=== PATIENT | male | born 1985 | race African-American/Black ===

== ENCOUNTER 2016-04-28 23:56 | Emergency (ER) | payer BC ==
[~2016-04-28] VITALS: Ht 177.8 cm; Wt 104.3 kg
[2016-04-29 00:07] VITALS: BP 117/63
[2016-04-29] MEDS ORDERED: PRED50TA PO (00:17)
[2016-04-29] MEDS ORDERED: VENTOLIN HFA18 GM INH (00:17)
--- NOTE | 2016-04-29 00:17 | PHYS DOC ---
Past Medical History Past Medical History: Asthma, GERD Past Surgical History: Other Additional Past Surgical Histo: right hand Alcohol Use: Rarely Drug Use: Marijuana Adult General Chief Complaint Chief Complaint: ASTHMA HPI HPI Patient is a 30 year old gentleman who has history significant for asthma presents here today secondary to wheezing and shortness of breath. Patient reports that his asthma has been flaring up over the last couple weeks with the change in weather. Patient reports today it started getting worse and he came to the ER. Patient reports that he has run out of his albuterol MDI. Patient reports he has no appointment for primary care physician until 2 weeks now. Patient denies any fevers shakes chills nausea vomiting or diarrhea. Patient reports that he does have a nonproductive cough. Patient has no history of hypertension diabetes liver or kidney problems. Patient reports he does smoke marijuana. Patient's physical exam was significant for some mild respiratory wheezing. No respiratory distress. Pulse ox 99% on room air. Patient be given an albuterol neb in the ED as well as prednisone. We will discharge patient home with prednisone 5 days, and an albuterol MDI. Patient is ablating the ED without any dyspnea or shortness of breath. Patient is stable for discharge home at this time. Review of Systems Review of Systems Constitutional: Denies fever or chills [] Eyes: Denies change in visual acuity, redness, or eye pain [] All other review systems are negative except as documented in the history of present illness portion. Allergies Allergies Allergies Coded Allergies Type Severity Reaction Last Updated Verified naproxen Allergy Unknown 12/21/14 Yes Physical Exam Physical Exam Constitutional: Well developed, well nourished, no acute distress, non-toxic appearance. [] HENT: Normocephalic, atraumatic, bilateral external ears normal, oropharynx moist, no oral exudates, nose normal. [] Eyes: PERRLA, EOMI, conjunctiva normal, no discharge. [] Neck: Normal range of motion, no tenderness, supple, no stridor. [] Cardiovascular:Heart rate regular rhythm, no murmur [] Lungs & Thorax: Scant end expiratory wheezing. Abdomen: Bowel sounds normal, soft, no tenderness, no masses, no pulsatile masses. [] Skin: Warm, dry, no erythema, no rash. [] Back: No tenderness, no CVA tenderness. [] Extremities: No tenderness, no cyanosis, no clubbing, ROM intact, no edema. [] Neurologic: Alert and oriented X 3, normal motor function, normal sensory function, no focal deficits noted. [] Psychologic: Affect normal, judgement normal, mood normal. [] Current Patient Data Vital Signs Vital Signs Date Time Temp Pulse Resp B/P Pulse Ox O2 Delivery O2 Flow Rate FiO2 04/29/16 00:07 97.6 88 20 100 Room Air 97.6 EKG EKG [] Radiology/Procedures Radiology/Procedures [] Course & Med Decision Making Course & Med Decision Making Pertinent Labs and Imaging studies reviewed. (See chart for details) [] Dragon Disclaimer Dragon Disclaimer This electronic medical record was generated, in whole or in part, using a voice recognition dictation system. Departure Departure Impression: Primary Impression: Asthma exacerbation Disposition: 01 HOME, SELF-CARE Condition: IMPROVED Referrals: JAVIER GAUTHIER MD (PCP) Patient Instructions: Asthma, Adult Scripts Prednisone 50 Mg Tablet1 Tab PO DAILY #5 TAB Prov:JESUS MANUEL MORGAN MD 04/29/16 Albuterol Sulfate (Ventolin Hfa Inhaler)18 Gm Hfa.aer.ad2 Puff INH QID PRN WHEEZING #1 INHALER Ref 5 NS Prov:JESUS MANUEL MORGAN MD 04/29/16 JESUS MANUEL MORGAN MD Apr 29, 2016 00:17
[2016-04-29] MEDS ORDERED: ALBUTEROL SULFATE 2.5 MG/3 ML NEBU. NEB ONE (00:30)
[2016-04-29] MEDS ORDERED: PREDNISONE 20 MG TABLET PO ONE (00:30)
== END 2016-04-29 00:31 | disposition home or self-care (01) ==
LOC: ER 23:56
DX: J45.901 Unspecified asthma with (acute) exacerbation (principal); J45.909 Unspecified asthma, uncomplicated; K21.9 Gastro-esophageal reflux disease without esophagitis; F12.10 Cannabis abuse, uncomplicated; Z88.8 Allergy status to other drugs, medicaments and biological substances
CPT/HCPCS: 94640; 99283; J7512

== ENCOUNTER 2018-08-22 14:02 | Emergency (ER) | payer SELFPAY ==
[~2018-08-22] VITALS: Ht 177.8 cm; Wt 106.6 kg
[~2018-08-22 14:02] MED LIST: DOXY100C2 PO; PRED50TA PO; VENTOLIN HFA18 GM INH
[2018-08-22 14:24] VITALS: BP 106/69
--- NOTE | 2018-08-22 14:45 | RAD ---
Right foot, 3 views, 08/22/2018: HISTORY: Foot pain and swelling, injury There is a hallux valgus deformity. There is a subtle lucency projected over the base of the fifth metatarsal on one view, raising the possibility of a nondisplaced fracture. No other fracture or dislocation is identified. Moderate diffuse soft tissue swelling is seen. IMPRESSION: Possible nondisplaced fracture of the base of the fifth metatarsal. Radiographic follow-up is suggested, if clinically indicated. Electronically signed by: Luigi Akhtar MD (08/22/2018 2:42 PM) [facility]
--- NOTE | 2018-08-22 15:05 | PHYS DOC ---
Past Medical History Past Medical History: Asthma, GERD Past Surgical History: Other Additional Past Surgical Histo: right hand Alcohol Use: Rarely Drug Use: Marijuana Adult General Chief Complaint Chief Complaint: FOOT INJURY PAIN HPI HPI Patient is a 32 year old is male who presents to the ED today complaining of 8 out of 10 right lateral foot pain that began 2 days ago after he rolled his ankle. Patient describes the pain as throbbing and intermittent worse on weight bearing. Patient states he has previous history of right metatarsal fracture. Review of Systems Review of Systems Constitutional: Denies fever or chills [] Musculoskeletal: Reports right foot pain Integument: Denies rash or skin lesions [] Neurologic: Denies headache, focal weakness or sensory changes [] All other systems were reviewed and found to be within normal limits, except as documented in this note. Allergies Allergies Allergies Coded Allergies Type Severity Reaction Last Updated Verified naproxen Allergy Unknown 12/21/14 Yes Physical Exam Physical Exam Constitutional: Well developed, well nourished, no acute distress, non-toxic appearance. [] Skin: Warm, dry, no erythema, no rash. [] Back: No tenderness, no CVA tenderness. [] Extremities: Right foot with no obvious deformity. Tenderness on palpation of the base of the fifth metatarsal tarsal the right foot. Full range of motion to the right foot and toes. +2 right pedal pulse. Cap refill less than 2 seconds the right toes. Neurologic: Alert and oriented X 3, normal motor function, normal sensory function, no focal deficits noted. [] Psychologic: Affect normal, judgement normal, mood normal. [] Current Patient Data Vital Signs Vital Signs Date Time Temp Pulse Resp B/P (MAP) Pulse Ox O2 Delivery O2 Flow Rate FiO2 08/22/18 14:24 97.3 82 20 106/69 (81) 98 Room Air 97.3 EKG EKG [] Radiology/Procedures Radiology/Procedures []PROCEDURE: FOOT RIGHT 3V Right foot, 3 views, 08/22/2018: HISTORY: Foot pain and swelling, injury There is a hallux valgus deformity. There is a subtle lucency projected over the base of the fifth metatarsal on one view, raising the possibility of a nondisplaced fracture. No other fracture or dislocation is identified. Moderate diffuse soft tissue swelling is seen. IMPRESSION: Possible nondisplaced fracture of the base of the fifth metatarsal. Radiographic follow-up is suggested, if clinically indicated. Electronically signed by: Luigi Akhtar MD (08/22/2018 2:42 PM) [facility] DICTATED and SIGNED BY: LUIGI KAHTAR MD DATE: 08/22/18 1442 Course & Med Decision Making Course & Med Decision Making Pertinent Labs and Imaging studies reviewed. (See chart for details) This is a 32-year-old male patient presenting to the ED today with right after rolling his ankle couple days ago. Right foot x-rays interpreted by radiologist -Possible nondisplaced fracture of the base of the fifth metatarsal. Patient provided doctor should in the ED applied by the ED RN, ice elevation encouraged. Follow-up with orthopedic doctor. Deric Disclaimer Dragon Disclaimer This electronic medical record was generated, in whole or in part, using a voice recognition dictation system. Departure Departure Impression: Primary Impression: Fracture of 5th metatarsal Disposition: 01 HOME, SELF-CARE Condition: STABLE Referrals: NO PCP (PCP) ARIEL LUQUE MD call his office and set up a follow up appointment Patient Instructions: Metatarsal Stress Fracture-SportsMed Additional Instructions: You were evaluated in the emergency room and noted to have fracture of the right fifth metatarsal. Ice elevate the extremity. Call the provided orthopedic docto r set up a follow-up appointment. Problem Qualifiers Primary Impression: Fracture of 5th metatarsal Encounter type: initial encounter Fracture type: closed Fracture alignment: nondisplaced Laterality: right Qualified Codes: S92.354A - Nondisplaced fracture of fifth metatarsal bone, right foot, initial encounter for closed fracture YUE POLLACK APRN Aug 22, 2018 15:05
== END 2018-08-22 15:09 | disposition home or self-care (01) ==
LOC: ER 14:02
DX: S92.354A Nondisplaced fracture of fifth metatarsal bone, right foot, initial encounter for closed fracture (principal); J45.909 Unspecified asthma, uncomplicated; K21.9 Gastro-esophageal reflux disease without esophagitis; Z88.8 Allergy status to other drugs, medicaments and biological substances; X50.1XXA Overexertion from prolonged static or awkward postures, initial encounter; Y93.89 Activity, other specified; Y92.89 Other specified places as the place of occurrence of the external cause; Y99.8 Other external cause status
CPT/HCPCS: 73630; 99284

== ENCOUNTER 2018-11-11 09:03 | Emergency (ER) | payer OTHER ==
[~2018-11-11] VITALS: Ht 177.8 cm; Wt 108.9 kg
[2018-11-11 09:30] VITALS: BP 124/74
[2018-11-11] MEDS ORDERED: LIDO:MAALOX 1:1 20 ML SINGLE DOSE. SWSW ONE (09:45)
[2018-11-11] MEDS ORDERED: PANT40TA77 PO (10:35)
[2018-11-11] MEDS ORDERED: SUCR1TAB35 PO (10:35)
--- NOTE | 2018-11-11 10:36 | PHYS DOC ---
Past Medical History Past Medical History: Asthma, GERD Past Surgical History: Other Additional Past Surgical Histo: right hand Alcohol Use: Rarely Drug Use: Marijuana Adult General Chief Complaint Chief Complaint: GI PROBLEM HPI HPI Patient is a 33 year old male who presents with complaining of acid reflux. Patient states he has had diagnosis of GERD for 9 years and seen by GI specialist and had endoscopy and taking different antacid medications including omeprazole, ranitidine, Protonix. Patient complaining of increasing upper substernal and throat burning pain for the last 3 days as a constant pain that did not get better with home medication. Patient denies nausea and vomiting, fe piter and chills, diarrhea and constipation, urinary symptom. Patient states his pain is like his previous episodes of GERD and denies shortness of breath and dizziness and palpitation. Review of Systems Review of Systems Constitutional: Denies fever or chills [] Eyes: Denies change in visual acuity, redness, or eye pain [] HENT: Denies nasal congestion or sore throat [] Respiratory: Denies cough or shortness of breath [] Cardiovascular: No additional information not addressed in HPI [] GI: Denies abdominal pain, nausea, vomiting, bloody stools or diarrhea [] : Denies dysuria or hematuria [] Musculoskeletal: Denies back pain or joint pain [] Integument: Denies rash or skin lesions [] Neurologic: Denies headache, focal weakness or sensory changes [] Endocrine: Denies polyuria or polydipsia [] All other systems were reviewed and found to be within normal limits, except as documented in this note. Current Medications Current Medications Current Medications Medications (Trade) Dose Ordered Sig/Keerthi Start Time Stop Time Status Last Admin Dose Admin Multi-Ingredient Mouthwash/Gargle (Gi Cocktail) 20 ml 1X ONCE 11/11/18 09:45 11/11/18 09:46 DC 11/11/18 10:22 20 ML Allergies Allergies Allergies Coded Allergies Type Severity Reaction Last Updated Verified naproxen Allergy Unknown 12/21/14 Yes Physical Exam Physical Exam Constitutional: Well developed, well nourished, mild distress, non-toxic appearance. [] HENT: Normocephalic, atraumatic. Eyes: PERRLA, EOMI, conjunctiva normal, no discharge. [] Neck: Normal range of motion, no tenderness, supple, no stridor. [] Cardiovascular:Heart rate regular rhythm, no murmur [] Lungs & Thorax: Bilateral breath sounds clear to auscultation [] Abdomen: Bowel sounds normal, soft, no tenderness, no masses, no pulsatile masses. [] Skin: Warm, dry, no erythema, no rash. [] Back: No tenderness, no CVA tenderness. [] Extremities: No tenderness, no cyanosis, no clubbing, ROM intact, no edema. [] Neurologic: Alert and oriented X 3, no focal deficits noted. [] Psychologic: Affect normal, judgement normal, mood normal. [] Current Patient Data Vital Signs Vital Signs Date Time Temp Pulse Resp B/P (MAP) Pulse Ox O2 Delivery O2 Flow Rate FiO2 11/11/18 09:30 98.5 75 16 124/74 (91) 98 Room Air 98.5 EKG EKG [] Radiology/Procedures Radiology/Procedures [] Course & Med Decision Making Course & Med Decision Making Evaluation of patient in ER showed 33-year-old male patient with history of increasing pain for the last 3 days that improved with GI cocktail. I've spoken with the patient and/or caregivers. I've explained the patient's condition, diagnosis and treatment plan based on information available to me at this time. I've answered the patient's and/or caregivers questions and addressed any concerns. The patient and/or caregivers have a good understanding the patient's diagnosis, condition and treatment plan as can be expected at this point. Vital signs have been stabilized. The patient's condition is stable for discharge from the emergency department. The patient will pursue further outpatient evaluation with her primary care provider or other designated consulting physician as outlined in the discharge instructions. Patient and/or caregivers are agreeable to this plan of care and follow-up instructions have been explained in detail. The patient and/or car egivers have received these instructions in written format and expressed understanding of these discharge instructions. The patient and her caregivers are aware that if any significant change in condition or worsening of symptoms should prompt him to immediately return to this of the closest emergency department. If an emergent department is not readily available I would encourage him to call 911. Deric Disclaimer Dragon Disclaimer This electronic medical record was generated, in whole or in part, using a voice recognition dictation system. Departure Departure Impression: Primary Impression: GERD (gastroesophageal reflux disease) Disposition: HOME, SELF-CARE (1033) Condition: IMPROVED Referrals: JAVIER GAUTHIER MD (PCP) Patient Instructions: Diet for Gastroesophageal Reflux Disease, Adult, Gastroesophageal Reflux Disease, Adult Additional Instructions: Follow-up with your primary care physician in 3-5 days Return to ER if not getting better Scripts Sucralfate (CARAFATE) 1 Gm Tablet 1 TAB PO QID, #40 TAB 0 Refills Prov: NATHAN GRACE MD 11/11/18 Pantoprazole Sodium (PROTONIX ) 40 Mg Tablet.dr 40 MG PO DAILYAC for GERD, #30 TAB Prov: NATHAN GRACE MD 11/11/18 Problem Qualifiers Primary Impression: GERD (gastroesophageal reflux disease) Esophagitis presence: esophagitis presence not specified Qualified Codes: K21.9 - Gastro-esophageal reflux disease without esophagitis NATHAN GRACE MD Nov 11, 2018 10:36
== END 2018-11-11 10:44 | disposition home or self-care (01) ==
LOC: ER 09:03
DX: K21.9 Gastro-esophageal reflux disease without esophagitis (principal); J45.909 Unspecified asthma, uncomplicated; Z88.8 Allergy status to other drugs, medicaments and biological substances
CPT/HCPCS: 99283; 99284

== ENCOUNTER 2020-03-14 23:22 | Emergency (ER) | payer OTHER ==
[~2020-03-14] VITALS: Ht 177.8 cm; Wt 109.0 kg
[~2020-03-14 23:22] MED LIST changes: +DICY10CA3 PO; +HYOS0.1265 SL; +ONDA4TAB12 PO; +ONDA4TAB7 PO; +ONDA8TAB9 PO; +PANT20TA2 PO; +PANT40GR PO; +PANT40TA77 PO; +PROM25AM6 PO; +PROM25TA10 PO; +RANI150T2 PO; +SUCR1TAB35 PO
[2020-03-14 23:35] VITALS: BP 118/59
[2020-03-15] MEDS ORDERED: ORPH100T PO (00:49)
--- NOTE | 2020-03-15 00:50 | PHYS DOC ---
Past Medical History Past Medical History: Asthma, GERD, IBS, Other Additional Past Medical Histor: COLITIS, ulcers Past Surgical History: No Surgical History Additional Past Surgical Histo: right hand Smoking Status: Never Smoker Alcohol Use: None Drug Use: Marijuana General Adult EDM: Chief Complaint: SHOULDER INJURY HPI: HPI: Patient is a 34 year old [f__sex] who presents with [] Review of Systems: Review of Systems: Constitutional: Denies fever or chills. [] Eyes: Denies change in visual acuity. [] HENT: Denies nasal congestion or sore throat. [] Respiratory: Denies cough or shortness of breath. [] Cardiovascular: Denies chest pain or edema. [] GI: Denies abdominal pain, nausea, vomiting, bloody stools or diarrhea. [] : Denies dysuria. [] Musculoskeletal: Denies back pain or joint pain. [] Integument: Denies rash. [] Neurologic: Denies headache, focal weakness or sensory changes. [] Endocrine: Denies polyuria or polydipsia. [] Lymphatic: Denies swollen glands. [] Psychiatric: Denies depression or anxiety. [] Heart Score: Risk Factors: Risk Factors: DM, Current or recent (<one month) smoker, HTN, HLP, family history of CAD, obesity. Risk Scores: Score 0 - 3: 2.5% MACE over next 6 weeks - Discharge Home Score 4 - 6: 20.3% MACE over next 6 weeks - Admit for Clinical Observation Score 7 - 10: 72.7% MACE over next 6 weeks - Early Invasive Strategies Allergies: Allergies: Allergies Coded Allergies Type Severity Reaction Last Updated Verified naproxen Allergy Unknown 12/21/14 Yes Physical Exam: PE: Constitutional: Well developed, well nourished, no acute distress, non-toxic appearance. [] HENT: Normocephalic, atraumatic, bilateral external ears normal, oropharynx moist, no oral exudates, nose normal. [] Eyes: PERRLA, EOMI, conjunctiva normal, no discharge. [] Neck: Normal range of motion, no tenderness, supple, no stridor. [] Cardiovascular:Heart rate regular rhythm, no murmur [] Lungs & Thorax: Bilateral breath sounds clear to auscultation [] Abdomen: Bowel sounds normal, soft, no tenderness, no masses, no pulsatile mass es. [] Skin: Warm, dry, no erythema, no rash. [] Back: No tenderness, no CVA tenderness. [] Extremities: No tenderness, no cyanosis, no clubbing, ROM intact, no edema. [] Neurologic: Alert and oriented X 3, normal motor function, normal sensory function, no focal deficits noted. [] Psychologic: Affect normal, judgement normal, mood normal. [] Current Patient Data: Vital Signs: Vital Signs Date Time Temp Pulse Resp B/P (MAP) Pulse Ox O2 Delivery O2 Flow Rate FiO2 03/14/20 23:35 98.4 86 16 118/59 (78) Room Air 97.0 98.4 EKG: EKG: [] Radiology/Procedures: Radiology/Procedures: [] Course & Med Decision Making: Course & Med Decision Making Pertinent Labs and Imaging studies reviewed. (See chart for details) [] Dragon Disclaimer: Dragon Disclaimer: This electronic medical record was generated, in whole or in part, using a voice recognition dictation system. Departure Departure Impression: Primary Impression: Strain of shoulder, right Qualified Codes: S46.911A - Strain of unspecified muscle, fascia and tendon at shoulder and upper arm level, right arm, initial encounter Disposition: 01 DC HOME SELF CARE/HOMELESS Condition: STABLE Referrals: JAVIER GAUTHIER MD (PCP) ARIEL LUQUE MD Patient Instructions: RICE - Routine Care for Injuries, [id number], Shoulder Pain, [id number], Shoulder Sprain Additional Instructions: DO shoulder circles as directed in the Emergency Department. DO at least 10x in a row in each direction 5x daily to prevent a FROZEN shoulder. May also take over the counter Tylenol and/or Ibuprofen for pain or discomfort. Scripts Orphenadrine Citrate (ORPHENADRINE CITRATE) 100 Mg Tablet.er 100 MG PO BID PRN for MUSCLE PAIN, #14 TAB Prov: HÉCTOR BARTHOLOMEW DO 03/15/20 HÉCTOR BARTHOLOMEW DO Mar 15, 2020 00:50
--- NOTE | 2020-03-15 03:06 | RAD ---
EXAM: XR SHOULDER_RIGHT 2+ VIEWS 03/14/2020 11:51 PM CLINICAL INDICATION: Pain COMPARISON: None TECHNIQUE: 3 views of the right shoulder FINDINGS: No acute fracture. Alignment is normal. The glenohumeral and acromioclavicular joints are maintained. Soft tissues normal. IMPRESSION: Normal right shoulder radiograph. Electronically signed by: Michelle Hall MD (03/15/2020 3:04 AM) [id number]
== END 2020-03-15 01:17 | disposition home or self-care (01) ==
LOC: ER 23:22
DX: S46.811A Strain of other muscles, fascia and tendons at shoulder and upper arm level, right arm, initial encounter (principal); J45.909 Unspecified asthma, uncomplicated; K21.9 Gastro-esophageal reflux disease without esophagitis; F12.90 Cannabis use, unspecified, uncomplicated; Z98.890 Other specified postprocedural states; W54.8XXA Other contact with dog, initial encounter; Y93.89 Activity, other specified; Y92.89 Other specified places as the place of occurrence of the external cause; Y99.8 Other external cause status
CPT/HCPCS: 73030; 99283; A4565

== ENCOUNTER 2020-04-13 14:19 | Emergency (ER) | payer OTHER ==
[~2020-04-13 14:19] MED LIST changes: +ORPH100T PO
== END 2020-04-13 15:25 | disposition left against medical advice (07) ==
LOC: ER 14:19
DX: M79.662 Pain in left lower leg (principal); Z53.21 Procedure and treatment not carried out due to patient leaving prior to being seen by health care provider

== ENCOUNTER 2020-08-14 09:04 | Emergency (ER) | payer OTHER ==
[~2020-08-14] VITALS: Ht 177.8 cm; Wt 106.0 kg
--- NOTE | 2020-08-14 09:09 | PHYS DOC ---
Past Medical History Past Medical History: Asthma, GERD, IBS, Other Additional Past Medical Histor: COLITIS, ulcers Past Surgical History: No Surgical History Additional Past Surgical Histo: right hand Smoking Status: Never Smoker Alcohol Use: None Drug Use: Marijuana General Adult EDM: Chief Complaint: ABDOMINAL PAIN HPI: HPI: Patient is a 34 year old male who present to ER for evaluation of epigastric burning pain with nausea vomiting since 2 days ago. Patient said he ate some bad's turkey sandwich 3 days ago. Since he started feeling nauseous and having dry heaving with abdominal pain. Patient denies any fever, no diarrhea. Patient does have history of pancreatitis in the past. Patient denies any chest pain, no trouble breathing. Review of Systems: Review of Systems: Constitutional: Denies fever or chills. [] Eyes: Denies change in visual acuity. [] HENT: Denies nasal congestion or sore throat. [] Respiratory: Denies cough or shortness of breath. [] Cardiovascular: Denies chest pain or edema. [] GI: Positive for abdominal pain with nausea vomiting, no diarrhea. : Denies dysuria. [] Musculoskeletal: Denies back pain or joint pain. [] Integument: Denies rash. [] Neurologic: Denies headache, focal weakness or sensory changes. [] Endocrine: Denies polyuria or polydipsia. [] Lymphatic: Denies swollen glands. [] Psychiatric: Denies depression or anxiety. [] Heart Score: C/O Chest Pain: N/A Risk Factors: Risk Factors: DM, Current or recent (<one month) smoker, HTN, HLP, family history of CAD, obesity. Risk Scores: Score 0 - 3: 2.5% MACE over next 6 weeks - Discharge Home Score 4 - 6: 20.3% MACE over next 6 weeks - Admit for Clinical Observation Score 7 - 10: 72.7% MACE over next 6 weeks - Early Invasive Strategies Allergies: Allergies: Allergies Coded Allergies Type Severity Reaction Last Updated Verified naproxen Allergy Unknown 12/21/14 Yes Physical Exam: PE: Constitutional: Well developed, well nourished, no acute distress, non-toxic appearance. [] HENT: Normocephalic, atraumatic, bilateral external ears normal, oropharynx moist, no oral exudates, nose normal. [] Eyes: PERRLA, EOMI, conjunctiva normal, no discharge. [] Neck: Normal range of motion, no tenderness, supple, no stridor. [] Cardiovascular:Heart rate regular rhythm, no murmur [] Lungs & Thorax: Bilateral breath sounds clear to auscultation [] Abdomen: Bowel sounds normal, soft, epigastric tenderness to palpation, no guarding, no rebound. Skin: Warm, dry, no erythema, no rash. [] Back: No tenderness, no CVA tenderness. [] Extremities: No tenderness, no cyanosis, no clubbing, ROM intact, no edema. [] Neurologic: Alert and oriented X 3, normal motor function, normal sensory function, no focal deficits noted. [] Psychologic: Affect normal, judgement normal, mood normal. [] Current Patient Data: Labs: Laboratory Tests Test 08/14/20 09:30 White Blood Count 12.0 x10^3/uL Red Blood Count 4.32 x10^6/uL Hemoglobin 14.5 g/dL Hematocrit 42.3 % Mean Corpuscular Volume 98 fL Mean Corpuscular Hemoglobin 34 pg Mean Corpuscular Hemoglobin Concent 34 g/dL Red Cell Distribution Width 13.4 % Platelet Count 364 x10^3/uL Neutrophils (%) (Auto) 71 % Lymphocytes (%) (Auto) 20 % Monocytes (%) (Auto) 6 % Eosinophils (%) (Auto) 2 % Basophils (%) (Auto) 1 % Neutrophils # (Auto) 8.5 x10^3/uL Lymphocytes # (Auto) 2.4 x10^3/uL Monocytes # (Auto) 0.7 x10^3/uL Eosinophils # (Auto) 0.3 x10^3/uL Basophils # (Auto) 0.1 x10^3/uL Sodium Level 143 mmol/L Potassium Level 3.5 mmol/L Chloride Level 105 mmol/L Carbon Dioxide Level 26 mmol/L Anion Gap 12 Blood Urea Nitrogen 22 mg/dL Creatinine 1.5 mg/dL Estimated GFR (Cockcroft-Gault) 64.8 BUN/Creatinine Ratio 15 Glucose Level 117 mg/dL Calcium Level 9.2 mg/dL Magnesium Level 2.1 mg/dL Total Bilirubin 0.4 mg/dL Aspartate Amino Transf (AST/SGOT) 46 U/L Alanine Aminotransferase (ALT/SGPT) 52 U/L Alkaline Phosphatase 62 U/L Total Protein 7.4 g/dL Albumin 4.3 g/dL Albumin/Globulin Ratio 1.4 Lipase 93 U/L Current Medications Medications (Trade) Dose Ordered Sig/Keerthi Route PRN Reason Start Time Stop Time Status Last Admin Dose Admin Ondansetron HCl (Zofran) 8 mg 1X ONCE IVP 08/14/20 09:15 08/14/20 09:16 DC Sodium Chloride 1,000 ml @ 1,000 mls/hr 1X ONCE IV 08/14/20 09:15 08/14/20 10:14 DC 08/14/20 09:30 Prochlorperazine Edisylate (Compazine) 10 mg 1X ONCE IV 08/14/20 09:45 08/14/20 09:46 DC 08/14/20 09:52 Morphine Sulfate (Morphine Sulfate) 4 mg 1X ONCE IV 08/14/20 09:45 08/14/20 09:46 DC 08/14/20 09:52 Famotidine (Pepcid Vial) 20 mg 1X ONCE IVP 08/14/20 09:45 08/14/20 09:46 DC 08/14/20 09:52 Iohexol (Omnipaque 300 Mg/ml) 75 ml 1X ONCE IV 08/14/20 10:30 08/14/20 10:31 DC 08/14/20 10:52 Iohexol (Omnipaque 300 Mg/ml) 75 ml 1X ONCE IV 08/14/20 10:30 08/14/20 10:31 DC Info (CONTRAST GIVEN -- Rx MONITORING) 1 each PRN DAILY PRN MC SEE COMMENTS 08/14/20 10:30 08/16/20 10:29 EKG: EKG: [] Radiology/Procedures: Radiology/Procedures: [][facility] [address] [place] [address] IMAGING REPORT Signed PATIENT: CÉSAR NAVARROUNT: [id number] : 1985 LOCATION: ER AGE: 34 SEX: M EXAM STATUS: REG ER ORD. PHYSICIAN: SHIRLEY JOEL DO REASON: ABDOMINAL PAIN, NAUSEA, VOMITING PROCEDURE: CT ABD PELV W/ IV CONTRST ONLY Examination: CT of the abdomen pelvis with IV contrast HISTORY: History of abdominal pain, nausea, vomiting Comparison: None available TECHNIQUE: Axial CT images of the abdomen pelvis were performed with IV contrast. Coronal and sagittal reformats are performed Exposure: One or more of the following individualized dose reduction techniques were utilized for this examination: 1. Automated exposure control 2. Adjustment of the mA and/or kV according to patient size 3. Use of iterative reconstruction technique Findings: The bibasilar lungs are clear. No evidence of free air identified in the abdomen. The liver, spleen, adrenals grossly appears unremarkable. The gallbladder is mildly distended. The stomach is mildly distended. Few fluid distended small bowel loops identified in the lower abdomen. Mild thickened appearance of the wall of the colon. Few scattered colonic diverticulosis identified. Urinary bladder is mildly distended. Bilateral kidneys enhance symmetrically. No evidence of lytic bony destructive lesion. IMPRESSION: 1. Mild thickened appearance of the wall of the colon could be due to nondistention or mild colitis. 2. Few fluid distended small bowel loops identified in the lower abdomen could be mild enteritis. Electronically signed by: Elroy Hernandez MD (08/14/2020 11:03 AM) [id number] DICTATED and SIGNED BY: ELROY HERNANDEZ MD DATE: 08/14/20 [id number] 0 Course & Med Decision Making: Course & Med Decision Making Pertinent Labs and Imaging studies reviewed. (See chart for details) [] Dragon Disclaimer: Dragon Disclaimer: This electronic medical record was generated, in whole or in part, using a voice recognition dictation system. Departure Departure Impression: Primary Impression: Abdominal pain Additional Impression: Nausea & vomiting Disposition: 01 HOME / SELF CARE / HOMELESS Condition: IMPROVED Referrals: JAVIER GAUTHIER MD (PCP) Follow up with your doctor on Sunday Patient Instructions: Abdominal Pain, Nausea and Vomiting Additional Instructions: Thank you for visiting our Emergency Department. We appreciate you trusting us with your care. If any additional problems come up don't hesitate to return to visit us. Please follow up with your primary care provider so they can plan additional care if needed and know about the problem that you had. If symptoms worsen come back to the Emergency Department. Any concerning symptoms that start such as chest pain, shortness of air, weakness or numbness on one side of the body, running high fevers or any other concerning symptoms return to the ER. Scripts Dicyclomine Hcl (DICYCLOMINE HCL) 10 Mg Capsule 1 CAP PO PRN Q6HRS PRN for ABDOMINAL CRAMPS, #20 CAP 3 Refills Prov: SHIRLEY JOEL DO 08/14/20 Metoclopramide Hcl (REGLAN) 10 Mg Tablet 1 TAB PO QID PRN for NAUSEA, #30 TAB 0 Refills before food and bedtime Prov: SHIRLEY JOEL DO 08/14/20 SHIRLEY JOEL DO Aug 14, 2020 09:09
[2020-08-14] MEDS ORDERED: IV NORMAL SALINE 1000ML BAG 1,000 ML IV ONE (09:15)
[2020-08-14] MEDS ORDERED: ONDANSETRON PF 4 MG/2 ML VIAL. IVP ONE (09:15)
[2020-08-14 09:43] LABS: BASO # 0.1 x10^3/uL (0.0-0.2); BASO % 1 % (0-3); EOS # 0.3 x10^3/uL (0.0-0.7); EOS % 2 % (0-3); HEMATOCRIT 42.3 % (39.0-53.0); HEMOGLOBIN 14.5 g/dL (13.0-17.5); LYMPH # 2.4 x10^3/uL (1.0-4.8); LYMPH % 20 % (24-48); MEAN CORPUSCULAR HEMOGLOBIN 34 pg (25-35); MEAN CORPUSCULAR HGB CONC 34 g/dL (31-37); MEAN CORPUSCULAR VOLUME 98 fL (79-100); MONO # 0.7 x10^3/uL (0.0-1.1); MONO % 6 % (0-9); NEUT # 8.5 x10^3/uL (1.8-7.7); NEUT % 71 % (31-73); PLATELET COUNT 364 x10^3/uL (140-400); RED BLOOD COUNT 4.32 x10^6/uL (4.30-5.70); RED CELL DISTRIBUTION WIDTH 13.4 % (11.5-14.5)
[2020-08-14] MEDS ORDERED: PROCHLORPERAZINE 10 MG/2 ML VIAL. IV ONE (09:45)
[2020-08-14] MEDS ORDERED: FAMOTIDINE 20 MG/2 ML VIAL IVP ONE (09:45)
[2020-08-14] MEDS ORDERED: MORPHINE SULFATE 4 MG/ML VIAL. IV ONE (09:45)
[2020-08-14 09:51] LABS: CALCIUM 9.2 mg/dL (8.5-10.1); CREATININE 1.5 mg/dL (0.7-1.3); GFR 64.8; POTASSIUM 3.5 mmol/L (3.5-5.1)
[2020-08-14 09:56] LABS: ALBUMIN 4.3 g/dL (3.4-5.0); ALBUMIN/GLOBULIN RATIO 1.4 (1.0-1.7); MAGNESIUM 2.1 mg/dL (1.8-2.4); TOTAL BILIRUBIN 0.4 mg/dL (0.2-1.0); TOTAL PROTEIN 7.4 g/dL (6.4-8.2)
[2020-08-14] MEDS ORDERED: CONTRAST GIVEN. MC PRN (10:30)
[2020-08-14] MEDS ORDERED: IOHEXOL 300 MG/ML 100ML VIAL. IV ONE ×2 (10:30)
--- NOTE | 2020-08-14 11:06 | RAD ---
Examination: CT of the abdomen pelvis with IV contrast HISTORY: History of abdominal pain, nausea, vomiting Comparison: None available TECHNIQUE: Axial CT images of the abdomen pelvis were performed with IV contrast. Coronal and sagitta l reformats are performed Exposure: One or more of the following individualized dose reduction techniques were utilized for thi s examination: 1. Automated exposure control 2. Adjustment of the mA and/or kV according to patient size 3. Use of iterative reconstruction technique Findings: The bibasilar lungs are clear. No evidence of free air identified in the abdomen. The liver, spleen, adrenals grossly appears unremarkable. The gallbladder is mildly distended. The stomach is mildly dis tended. Few fluid distended small bowel loops identified in the lower abdomen. Mild thickened appeara nce of the wall of the colon. Few scattered colonic diverticulosis identified. Urinary bladder is mil dly distended. Bilateral kidneys enhance symmetrically. No evidence of lytic bony destructive lesion. IMPRESSION: 1. Mild thickened appearance of the wall of the colon could be due to nondistention or mild colitis. 2. Few fluid distended small bowel loops identified in the lower abdomen could be mild enteritis. Electronically signed by: Elroy Hernandez MD (08/14/2020 11:03 AM) [id number]
[2020-08-14] MEDS ORDERED: METOCLOPRAMIDE HCL 10 MG/2 ML VIAL. IVP ONE (11:45)
[2020-08-14 11:55] LABS: BILIRUBIN,URINE NEGATIVE (NEG); CLARITY,URINE CLEAR; COLOR,URINE YELLOW; NITRITE,URINE NEGATIVE (NEG); PROTEIN,URINE NEGATIVE (NEG-TRACE)
[2020-08-14] MEDS ORDERED: DICY10CA3 PO (12:07)
[2020-08-14] MEDS ORDERED: METO10TA81 PO (12:07)
[2020-08-14 12:15] LABS: BACTERIA,URINE 0 /HPF (0-FEW); RBC,URINE 0 /HPF (0-2); WBC,URINE 0 /HPF (0-4)
[2020-08-14 12:16] VITALS: BP 161/91
== END 2020-08-14 12:20 | disposition home or self-care (01) ==
LOC: ER 09:04
DX: R10.13 Epigastric pain (principal); R11.2 Nausea with vomiting, unspecified; J45.909 Unspecified asthma, uncomplicated; K21.9 Gastro-esophageal reflux disease without esophagitis; K58.9 Irritable bowel syndrome, unspecified; Z88.8 Allergy status to other drugs, medicaments and biological substances
CPT/HCPCS: 36415; 74177; 80053; 81001; 83690; 83735; 85025; 96361; 96374; 96375; 99285; J0780; J2270; J2765; J3490; J7030; Q9967

== ENCOUNTER 2020-09-04 16:05 | Emergency (ER) | payer OTHER ==
[~2020-09-04 16:05] MED LIST changes: +METO10TA81 PO
== END 2020-09-04 18:45 | disposition left against medical advice (07) ==
LOC: ER 16:05
DX: R11.2 Nausea with vomiting, unspecified (principal); R19.7 Diarrhea, unspecified; Z53.21 Procedure and treatment not carried out due to patient leaving prior to being seen by health care provider

== ENCOUNTER 2020-11-29 10:10 | Emergency (ER) | payer SELFPAY ==
[~2020-11-29] VITALS: Ht 177.8 cm; Wt 102.0 kg
[~2020-11-29 10:10] MED LIST changes: -DOXY100C2 PO; +DOXY100C3 PO
[2020-11-29] MEDS ORDERED: IOHEXOL 300 MG/ML 100ML VIAL. IV ONE (10:30)
[2020-11-29] MEDS ORDERED: IV NORMAL SALINE 1000ML BAG 1,000 ML IV SCH (10:30)
[2020-11-29] MEDS ORDERED: ONDANSETRON PF 4 MG/2 ML VIAL. IVP ONE (10:30)
[2020-11-29] MEDS ORDERED: fentaNYL PF VIAL 100 MCG/2 ML VIAL IVP ONE (10:30)
[2020-11-29] MEDS ORDERED: PANTOPRAZOLE IV PUSH 40 MG VIAL. IVP ONE (10:30)
--- NOTE | 2020-11-29 10:37 | PHYS DOC ---
Past Medical History Past Medical History: Asthma, GERD, IBS, Other Additional Past Medical Histor: COLITIS, ulcers Past Surgical History: No Surgical History Additional Past Surgical Histo: right hand Smoking Status: Never Smoker Alcohol Use: None Drug Use: Marijuana General Adult EDM: Chief Complaint: ABDOMINAL PAIN HPI: HPI: Patient is a 35 year old male who presents with [facility] yesterday because he was having body aches and generalized fatigue with a slight cough. He states that he was tested for flu and Covid and everything was negative. He states they gave him a Z-Alan. States he took the Z-Alan yesterday but then last night started vomiting. He states he cannot keep anything down. He states he did take a Phenergan pill but he vomited back up. He states he is having a lot of severe epigastric sharp pain. Denies chest pain, shortness of air, fever, diarrhea, headache, dizziness, vision change, numbness or tingling, ear pain, throat pain. Patient has a history of pancreatitis, colitis, GERD, asthma, IBS and gastric ulcers. States he has not smoked marijuana for a week. Review of Systems: Review of Systems: Constitutional: Denies fever or chills. +Body aches [] Eyes: Denies change in visual acuity. [] HENT: Denies nasal congestion or sore throat. [] Respiratory: Denies cough or shortness of breath. [] Cardiovascular: Denies chest pain or edema. [] GI: + abdominal pain, +nausea, +vomiting, denies bloody stools or diarrhea. [] : Denies dysuria. [] Musculoskeletal: Denies back pain or joint pain. [] Integument: Denies rash. [] Neurologic: Denies headache, focal weakness or sensory changes. [] Endocrine: Denies polyuria or polydipsia. [] Lymphatic: Denies swollen glands. [] Psychiatric: Denies depression or anxiety. [] Heart Score: C/O Chest Pain: No Current Medications: Current Medications Medications (Trade) Dose Ordered Sig/Keerthi Start Time Stop Time Status Last Admin Dose Admin Fentanyl Citrate (Fentanyl 2ml Vial) 50 mcg 1X ONCE 11/29/20 10:30 11/29/20 10:31 UNV Ondansetron HCl (Zofran) 4 mg 1X ONCE 11/29/20 10:30 10/4/21 10:31 UNV Pantoprazole Sodium (PROTONIX VIAL for IV PUSH) 40 mg 1X ONCE 11/29/20 10:30 11/29/20 10:31 UNV Sodium Chloride 1,000 ml @ 1,000 mls/hr Q1H 11/29/20 10:30 11/29/20 11:29 Allergies: Allergies: Allergies Coded Allergies Type Severity Reaction Last Updated Verified naproxen Allergy Unknown 12/21/14 Yes Physical Exam: PE: Constitutional: Well developed, well nourished, no acute distress, non-toxic appearance. [] HENT: Normocephalic, atraumatic, bilateral external ears normal, oropharynx moist, no oral exudates, nose normal. [] Eyes: PERRLA, EOMI, conjunctiva normal, no discharge. [] Neck: Normal range of motion, no tenderness, supple, no stridor. [] Cardiovascular:Heart rate regular rhythm, no murmur [] Lungs & Thorax: Bilateral breath sounds clear to auscultation [] Abdomen: Bowel sounds normal, soft, Epigastric tenderness, no masses, no pulsatile masses. [] Skin: Warm, dry, no erythema, no rash. [] Back: No tenderness, no CVA tenderness. [] Extremities: No tenderness, no cyanosis, no clubbing, ROM intact, no edema. [] Neurologic: Alert and oriented X 3, normal motor function, normal sensory function, no focal deficits noted. [] Psychologic: Affect normal, judgement normal, mood normal. [] EKG: EKG: [] Radiology/Procedures: Radiology/Procedures: [] Impression: [facility] [address] [place], [place] [id number] IMAGING REPORT Signed PATIENT: CÉSAR NAVARRO JACCOUNT: [id number] : 1985 LOCATION: ER AGE: 35 SEX: M EXAM STATUS: PRE ER ORD. PHYSICIAN: TOR FORD APRN REASON: bodyaches, cough PROCEDURE: PORTABLE CHEST 1V EXAM: Chest, single view. HISTORY: Cough. COMPARISON: None. FINDINGS: A frontal view of the chest is obtained. There is left lower lobe infiltrate. There is also right infrahilar interstitial opacity due to atelectasis or infiltrate. There is no pleural effusion or pneumothorax. The heart is normal in size. IMPRESSION: 1. Left lower lobe pneumonia. Follow-up to confirm resolution. 2. Right lower lobe atelectasis or interstitial infiltrate. Electronically signed by: Dahlia Wynne MD (11/29/2020 11:41 AM) [id number] DICTATED and SIGNED BY: DAHLIA WYNNE MD DATE: 11/29/20 [id number] [facility] [address] [place] [address] IMAGING REPORT Signed PATIENT: CÉSAR NAVARRO JACCOUNT: [id number] : 1985 LOCATION: ER AGE: 35 SEX: M EXAM STATUS: PRE ER ORD. PHYSICIAN: TOR FORD APRN REASON: severe abdominal pain, hx pancreatitis and colitis PROCEDURE: CT ABD PELV W/ IV CONTRST ONLY EXAM: Abdomen and pelvis CT with intravenous contrast. HISTORY: Pain. Pancreatitis. Colitis. TECHNIQUE: Computed tomographic images of the abdomen and pelvis were obtained following the administration of intravenous contrast. Multiplanar reformatting was performed. *One or more of the following individualized dose reduction techniques were utilized for this examination: 1. Automated exposure control. 2. Adjustment of the mA and/or kV according to patient size. 3. Use of iterative reconstruction technique. COMPARISON: 08/14/2020. FINDINGS: Evaluation of the lower thorax demonstrates groundglass infiltrate within the posterior medial left lower lobe. There are also tiny scattered groundglass opacities within the right lower lobe due to infiltrate. There is no pleural effusion. The heart is normal in size. No suspicious hepatic lesion is seen. There is minimal fatty infiltration of the liver along the falciform ligament. The gallbladder, pancreas, spleen, adrenal glands and kidneys are unremarkable. There is no appendicitis. There is no bowel obstruction. There is colonic diverticulosis. There is no convincing diverticulitis. There is no bowel obstruction. There is no convincing enteritis or colitis. The aorta is normal in caliber. There is no lymphadenopathy. There is no suspicious or acute osseous finding. IMPRESSION: 1. Left greater than right lower lobe pneumonia. Follow-up to confirm resolution. 2. Colonic diverticulosis. There is no convincing acute finding involving the abdomen or pelvis. Electronically signed by: Dahlia Wynne MD (11/29/2020 11:56 AM) [id number] DICTATED and SIGNED BY: DAHLIA WYNNE MD DATE: 11/29/20 [id number] 0 Course & Med Decision Making: Course & Med Decision Making Pertinent Labs and Imaging studies reviewed. (See chart for details) COVID-19 CRITERIA: The patient was evaluated during the global COVID-19 pandemic, and that diagnosis was suspected/considered upon their initial presentation. Their evaluation, treatment and testing was consistent with current guidelines for patients who present with complaints or symptoms that may be related to COVID-19. See HPI. alert and oriented x4. Ambulatory with a steady gait. Skin pink warm and dry. Speaks in full clear sentences. Lungs are clear to all station all lobes. Bilateral tympanic's are white. Throat is pink with exudates or swelling. No trismus. Uvula midline. Vomit has no blood in it as seen in the ED as patient is vomiting. Abdomen is soft but has epigastric tenderness. Vital signs are within normal limits. He is afebrile. CT abdomen pelvis shows no acute findings except it did show some scattered groundglass opacities in his bilateral lower lungs. Chest x-ray also shows bilateral lower pneumonia. Patient be given 2 L of fluid as he is dehydrated. Patient be started on doxycycline. States he does not want to take the azithromycin tomorrow as it caused him to vomit. I told him that we will likely it is a pneumonia in his illness that caused him to start vomiting. Blood cultures to be done. After speaking with the patient more he states that he went to [facility] [employer] on November 15 when he found out on November 20 that somebody came up positive for Covid. He states he was tested on the and was negative. She states he is already taking prednisone at home. He states he has enough inhaler at home and does not need a prescription for that either. Vital signs are within normal limits and he is in no respiratory distress. [] Dragon Disclaimer: Dragon Disclaimer: This electronic medical record was generated, in whole or in part, using a voice recognition dictation system. COVID-19 Patient Risks: Age 65 or older: No Sign of co-morbidity: Yes Exp to person + for COVID: No Exp to PUI: No Travel from affected area: Yes Lower respiratory symptoms: Yes Fever: No Other: Yes (nausea and vomiting) PPE Use: Full PPE with N95 mask or PAPR: Yes Departure Departure Impression: Primary Impression: Pneumonia Qualified Codes: J18.9 - Pneumonia, unspecified organism Additional Impression: Person under investigation for COVID-19 Disposition: 01 HOME / SELF CARE / HOMELESS Condition: STABLE Referrals: JAVIER GAUTHIER MD (PCP) Patient Instructions: Pneumonia, Adult Additional Instructions: Follow-up with primary care provider to make sure you are pneumonia gets better. Drink plenty of fluids. Take Tylenol for any pain or fever. Take medication as prescribed and with food. Continue taking your prednisone and using inhaler as needed. If anything worsens or you become severely short of breath you need to return emergency room. Scripts Doxycycline Hyclate (DOXYCYCLINE HYCLATE) 100 Mg Capsule 1 CAP PO BID, #20 CAP Prov: TOR FORD APRN 11/29/20 TOR FORD APRN Nov 29, 2020 10:37
[2020-11-29] MEDS ORDERED: CONTRAST GIVEN. MC PRN (10:45)
[2020-11-29] MEDS ORDERED: PROCHLORPERAZINE 10 MG/2 ML VIAL. IV ONE (11:15)
[2020-11-29 11:20] LABS: CALCIUM 10.1 mg/dL (8.5-10.1); CREATININE 1.4 mg/dL (0.7-1.3); GFR 69.8
[2020-11-29 11:25] LABS: ALBUMIN 4.3 g/dL (3.4-5.0); ALBUMIN/GLOBULIN RATIO 1.1 (1.0-1.7); TOTAL BILIRUBIN 0.3 mg/dL (0.2-1.0); TOTAL PROTEIN 8.2 g/dL (6.4-8.2)
--- NOTE | 2020-11-29 11:43 | RAD ---
EXAM: Chest, single view. HISTORY: Cough. COMPARISON: None. FINDINGS: A frontal view of the chest is obtained. There is left lower lobe infiltrate. There is also right infrahilar interstitial opacity due to atelectasis or infiltrate. There is no pleural effusion or pneumothorax. The heart is normal in size. IMPRESSION: 1. Left lower lobe pneumonia. Follow-up to confirm resolution. 2. Right lower lobe atelectasis or interstitial infiltrate. Electronically signed by: Dahlia Novak MD (11/29/2020 11:41 AM) [id number]
--- NOTE | 2020-11-29 11:58 | RAD ---
EXAM: Abdomen and pelvis CT with intravenous contrast. HISTORY: Pain. Pancreatitis. Colitis. TECHNIQUE: Computed tomographic images of the abdomen and pelvis were obtained following the administ ration of intravenous contrast. Multiplanar reformatting was performed. *One or more of the following individualized dose reduction techniques were utilized for this examina tion: 1. Automated exposure control. 2. Adjustment of the mA and/or kV according to patient size. 3. Use of iterative reconstruction technique. COMPARISON: 08/14/2020. FINDINGS: Evaluation of the lower thorax demonstrates groundglass infiltrate within the posterior med ial left lower lobe. There are also tiny scattered groundglass opacities within the right lower lobe due to infiltrate. There is no pleural effusion. The heart is normal in size. No suspicious hepatic lesion is seen. There is minimal fatty infiltration of the liver along the falc iform ligament. The gallbladder, pancreas, spleen, adrenal glands and kidneys are unremarkable. There is no appendicitis. There is no bowel obstruction. There is colonic diverticulosis. There is no conv incing diverticulitis. There is no bowel obstruction. There is no convincing enteritis or colitis. The aorta is normal in caliber. There is no lymphadenopathy. There is no suspicious or acute osseous finding. IMPRESSION: 1. Left greater than right lower lobe pneumonia. Follow-up to confirm resolution. 2. Colonic diverticulosis. There is no convincing acute finding involving the abdomen or pelvis. Electronically signed by: Dahlia Novak MD (11/29/2020 11:56 AM) [id number]
[2020-11-29] MEDS ORDERED: IV NORMAL SALINE 1000ML BAG 1,000 ML IV ONE (12:00)
[2020-11-29 12:08] LABS: BASO % 0 % (0-3); EOS % 0 % (0-3); HEMATOCRIT 41.4 % (39.0-53.0); LYMPH # 0.7 x10^3/uL (1.0-4.8); LYMPH % 12 % (24-48); MEAN CORPUSCULAR HEMOGLOBIN 33 pg (25-35); MEAN CORPUSCULAR HGB CONC 34 g/dL (31-37); MEAN CORPUSCULAR VOLUME 97 fL (79-100); MONO # 0.8 x10^3/uL (0.0-1.1); MONO % 13 % (0-9); NEUT # 4.4 x10^3/uL (1.8-7.7); NEUT % 75 % (31-73); PLATELET COUNT 298 x10^3/uL (140-400); RED BLOOD COUNT 4.28 x10^6/uL (4.30-5.70); RED CELL DISTRIBUTION WIDTH 13.6 % (11.5-14.5); WHITE BLOOD COUNT 5.9 x10^3/uL (4.0-11.0)
[2020-11-29] MEDS ORDERED: DOXYCYCLINE HYCLATE 100 MG in IV DEXTROSE 5% 100ML 100 ML IV ONE (12:30)
[2020-11-29 13:06] VITALS: BP 104/55
[2020-11-29] MEDS ORDERED: DOXY100C3 PO (13:21)
[2020-11-29 13:22] LABS: INFLUENZA A PATIENT NEGATIVE (NEGATIVE); INFLUENZA B PATIENT NEGATIVE (NEGATIVE)
== END 2020-11-29 15:03 | disposition home or self-care (01) ==
LOC: ER 10:10
DX: J18.9 Pneumonia, unspecified organism (principal); Z20.822 Contact with and (suspected) exposure to COVID-19; J45.909 Unspecified asthma, uncomplicated; K21.9 Gastro-esophageal reflux disease without esophagitis; K58.9 Irritable bowel syndrome, unspecified; Z88.5 Allergy status to narcotic agent
CPT/HCPCS: 36415; 71045; 74177; 80053; 83605; 83690; 85025; 87040; 87426; 87804; 96361; 96365; 96375; 99285; C9113; J0780; J3010; J3490; J7030; J7060; Q9967

== ENCOUNTER 2020-12-27 08:21 | Emergency (ER) | payer SELFPAY ==
[~2020-12-27] VITALS: Ht 177.8 cm; Wt 95.5 kg
[2020-12-27] MEDS ORDERED: IV NORMAL SALINE 1000ML BAG 1,000 ML IV ONE (09:30)
[2020-12-27] MEDS ORDERED: FAMOTIDINE 20 MG/2 ML VIAL IVP ONE (09:30)
[2020-12-27] MEDS ORDERED: MORPHINE SULFATE 4 MG/ML INJ. IVP ONE (09:30)
[2020-12-27] MEDS ORDERED: PROCHLORPERAZINE 10 MG/2 ML VIAL. IV ONE (09:30)
[2020-12-27 09:56] LABS: CALCIUM 9.2 mg/dL (8.5-10.1); CREATININE 1.3 mg/dL (0.7-1.3); POTASSIUM 3.4 mmol/L (3.5-5.1)
[2020-12-27] MEDS ORDERED: IOHEXOL 300 MG/ML 100ML VIAL. IV ONE (10:00)
[2020-12-27] MEDS ORDERED: CONTRAST GIVEN. MC PRN (10:00)
[2020-12-27 10:02] LABS: ALBUMIN 4.2 g/dL (3.4-5.0); ALBUMIN/GLOBULIN RATIO 1.2 (1.0-1.7); TOTAL BILIRUBIN 0.3 mg/dL (0.2-1.0); TOTAL PROTEIN 7.8 g/dL (6.4-8.2)
--- NOTE | 2020-12-27 10:38 | PHYS DOC ---
Past Medical History Past Medical History: Asthma, GERD, IBS, Other Additional Past Medical Histor: STOMACH ULCERS Past Surgical History: Other Additional Past Surgical Histo: RT HAND SURGERY Smoking Status: Never Smoker Alcohol Use: None Drug Use: Marijuana General Adult EDM: Chief Complaint: NAUSEA/VOMITING/DIARRHEA HPI: HPI: Patient is a 35-year-old male who presents emerged department complaining that he woke up this morning at approximately 5 AM with severe nausea vomiting and abdominal pain all over. Patient reports his pain is a 9 out of 10. Reports a history of stomach ulcers, gallbladder problems, pancreas problems, reports he sees GI specialist Dr. Prado, primary care is Dr. Gauthier. Patient reports multiple vomiting since 5 AM this morning with clear to yellow vomitus, denies seeing blood in his vomit. Patient denies diarrhea or constipation, denies recent fever or chills, denies receiving the COVID-19 virus vaccination series or flu shot this year, reports a allergy to naproxen, reports taking Protonix and Carafate at home as directed by his primary care physician. Patient denies cigarette smoking or drinking alcohol, reports marijuana smoking use. Patient denies other physical complaints or physical concerns. Review of Systems: Review of Systems: 14 body systems of review of systems have been reviewed. See HPI for pertinent positives and negative responses, otherwise all other systems are negative, nonpertinent or noncontributory. Constitutional: Negative except as outlined in HPI above. Skin: Negative except as outlined in HPI above. Eyes: Negative except as outlined in HPI above. HENT: Negative except as outlined in HPI above. Respiratory: Negative except as outlined in HPI above. Cardiovascular: Negative except as outlined in HPI above. GI: Negative except as outlined in HPI above. : Negative except as outlined in HPI above. Musculoskeletal: Negative except as outlined in HPI above. Integument: Negative except as outlined in HPI above. Neurologic: Negative except as outlined in HPI above. Endocrine: Negative except as outlined in HPI above. Lymphatic: Negative except as outlined in HPI above. Psychiatric: Negative except as outlined in HPI above. Heart Score: C/O Chest Pain: No Risk Factors: Risk Factors: DM, Current or recent (<one month) smoker, HTN, HLP, family history of CAD, obesity. Risk Scores: Score 0 - 3: 2.5% MACE over next 6 weeks - Discharge Home Score 4 - 6: 20.3% MACE over next 6 weeks - Admit for Clinical Observation Score 7 - 10: 72.7% MACE over next 6 weeks - Early Invasive Strategies Current Medications: Current Medications Medications (Trade) Dose Ordered Sig/Keerthi Start Time Stop Time Status Last Admin Dose Admin Famotidine (Pepcid Vial) 20 mg 1X ONCE 12/27/20 09:30 12/27/20 09:31 DC 12/27/20 09:48 20 MG Info (CONTRAST GIVEN -- Rx MONITORING) 1 each PRN DAILY PRN 12/27/20 10:00 12/29/20 09:59 Iohexol (Omnipaque 300 Mg/ml) 75 ml 1X ONCE 12/27/20 10:00 12/27/20 10:01 DC 12/27/20 10:23 75 ML Morphine Sulfate (Morphine Sulfate) 4 mg 1X ONCE 12/27/20 09:30 12/27/20 09:31 DC 12/27/20 09:50 4 MG Prochlorperazine Edisylate (Compazine) 10 mg 1X ONCE 12/27/20 09:30 12/27/20 09:31 DC 12/27/20 09:49 10 MG Sodium Chloride 1,000 ml @ 1,000 mls/hr 1X ONCE 12/27/20 09:30 12/27/20 10:29 12/27/20 09:40 1,000 MLS/HR Allergies: Allergies: Allergies Coded Allergies Type Severity Reaction Last Updated Verified naproxen Allergy Unknown 12/21/14 Yes Physical Exam: PE: Constitutional: Well developed, well nourished, appears uncomfortable however is nontoxic in appearance. HENT: Normocephalic, atraumatic. Eyes: Conjunctiva normal, no discharge. Neck: Normal range of motion. Cardiovascular: Distal cap refill less than 2 seconds, no cyanosis appreciated. Lungs & Thorax: Patient is in no respiratory distress, no adventitious lung sounds appreciated. Abdomen: Bowel sounds normal, soft, no masses, no pulsatile masses. No bruising or skin discoloration of the abdomen. Tender to palpation all quadrants focusing at epigastric area. Skin: Warm, dry, no erythema, no rash. Back: No tenderness, no CVA tenderness. Extremities: No tenderness, no cyanosis, no clubbing, ROM intact, no edema. Neurologic: Alert and oriented X 3, normal motor function, normal sensory function, no focal deficits noted. Psychologic: Affect normal, judgement normal, mood normal. Current Patient Data: Labs: Laboratory Tests Test 12/27/20 09:34 Sodium Level 142 mmol/L (136-145) Potassium Level 3.4 mmol/L (3.5-5.1) L Chloride Level 107 mmol/L (98-107) Carbon Dioxide Level 20 mmol/L (21-32) L Anion Gap 15 (6-14) H Blood Urea Nitrogen 21 mg/dL (8-26) Creatinine 1.3 mg/dL (0.7-1.3) Estimated GFR (Cockcroft-Gault) 76.0 BUN/Creatinine Ratio 16 (6-20) Glucose Level 110 mg/dL (70-99) H Calcium Level 9.2 mg/dL (8.5-10.1) Total Bilirubin 0.3 mg/dL (0.2-1.0) Aspartate Amino Transferase (AST) 35 U/L (15-37) Alanine Aminotransferase (ALT) 35 U/L (16-63) Alkaline Phosphatase 71 U/L (46-116) Total Protein 7.8 g/dL (6.4-8.2) Albumin 4.2 g/dL (3.4-5.0) Albumin/Globulin Ratio 1.2 (1.0-1.7) Lipase 118 U/L (73-393) Laboratory Tests 12/27/20 09:34 Vital Signs: Vital Signs Date Time Temp Pulse Resp B/P (MAP) Pulse Ox O2 Delivery O2 Flow Rate FiO2 12/27/20 09:05 98.3 83 16 138/73 (94) 100 Room Air 98.3 EKG: EKG: [] Radiology/Procedures: Radiology/Procedures: PATIENT: CÉSAR NAVARRO JACCOUNT: [id number] : 1985 LOCATION: ER AGE: 35 SEX: M EXAM STATUS: REG ER ORD. PHYSICIAN: HÉCTOR PUGH APRN REASON: Gallbladder/pancreas study PROCEDURE: ABDOMEN LTD US ABDOMEN LIMITED History: Reason: Pain Comparison: CT December 27, 2020. Technique: Transabdominal ultrasound images are obtained of the right upper quadrant. Findings: Liver is normal in echogenicity. Right hepatic lobe measures 17 cm. Portal flow is hepatopedal. Mild gallbladder sludge. No cholelithiasis. No gallbladder wall thickening. Common bile duct measures 2.4 mm in diameter. Visualized pancreas not well seen due to overlying bowel gas. The right kidney measures 11.2 x 4.2 x 4.1 cm. No hydronephrosis. Visualized portions of the aorta and IVC have normal caliber. IMPRESSION: 1. Mild gallbladder sludge. Electronically signed by: Constantine Dc DO (12/27/2020 11:02 AM) [id number] PROCEDURE: CT ABD PELV W/ IV CONTRST ONLY CT ABDOMEN+PELVIS W History: Reason: Abdominal pain, nausea, vomiting. / Spl. Instructions: IV omni 300 75 mls / History: Technique: After the administration of intravenous contrast, CT imaging was performed of the abdomen and pelvis. Multiplanar images are reviewed. Exposure: One or more of the following individualized dose reduction techniques were utilized for this examination: 1. Automated exposure control 2. Adjustment of the mA and/or kV according to patient size 3. Use of iterative reconstruction technique. Comparison: November 29, 2020 Findings: Lower chest: Significantly decreased left lower lobe consolidations with minimal residual groundglass opacities. No pleural effusion. Abdomen and pelvis: The liver, spleen, adrenal glands, pancreas and gallbladder are unremarkable. No biliary ductal dilatation. No renal calculus. No hydronephrosis. Normal appearance of the urinary bladder. Gastric antral wall thickening, increased compared to prior. Mild colonic diverticulosis. Normal appendix. No evidence of bowel obstruction. No pathologic lymphadenopathy. No ascites. Bones: Unchanged colonic lesion within the left posterior ilium. Impression: 1. Gastric antral wall thickening, increased compared to prior. Findings may relate to nondistention or gastritis. 2. Significantly decreased left lower lobe consolidations with minimal residual groundglass opacities. Electronically signed by: Constantine Dc DO (12/27/2020 11:01 AM) [id number] Course & Med Decision Making: Course & Med Decision Making Pertinent Labs and Imaging studies reviewed. (See chart for details) 35-year-old male, vital signs reviewed, presents for department concerning waking up with severe nausea and vomiting. Physical examination concerning for abdominal process, patient has a reported history of gastric ulcers, gallbladder problems and pancreas problems however upon extensive chart review while there was noted elevated lipase, no sonogram of the upper abdomen with focus of gallbladder or pancreas and adjacent structures performed. There are previous CT scans of the abdomen pelvis that showed history of colitis, there has been suspicion of cyclic vomiting. There may be a cyclic vomiting component to today's presentation. Will order CBC, CMP, lipase, IV normal saline, IV morphine, IV Compazine for nausea. Urinalysis assay, will reevaluate after period of time Upon reevaluation of the patient, patient reports good pain relief, has not exhibited any vomiting during ER stay, reports his nausea has been relieved, d iscussed with patient weight related to CBC not complete at this time, patient is amenable to ED planning. Patient's ED nurse alerted patient is ready to leave the department, discussed with patient would like to obtain CBC, patient states he has had total pain relief and will return for additional blood or lab work if his pain does return, discussed all CT imaging and sonogram imaging with patient, recommended patient strict follow-up with his GI specialist Dr. Prado this week, patient has been waiting close to 4 hours for a CBC draw which has not been completed yet. Related to the patient's total pain relief, is not toxic in appearance, hemodynamically stable, the patient having a joint decision to defer the CBC study with strict follow-up to the ER for returning symptoms. Patient is amenable to ED discharge planning. Discussed with the patient all findings and diagnostic testing as well as the need to follow-up with their primary care provider for further evaluation and treatment or return to the ED if any new or worsening symptoms. Strict return precautions were also discussed at length, the patient voiced understanding and agreement with the discharge planning. The patient was nontoxic in appearance, in no apparent distress, and hemodynamically stable at the time of disposition. Dragon Disclaimer: Dragon Disclaimer: This electronic medical record was generated, in whole or in part, using a voice recognition dictation system. Departure Departure Impression: Primary Impression: Nausea and vomiting Qualified Codes: R11.2 - Nausea with vomiting, unspecified Additional Impression: Abnormal abdominal ultrasound Disposition: HOME / SELF CARE / HOMELESS Condition: Referrals: JAVIER GAUTHIER MD (PCP) Additional Instructions: You were seen today in the emergency department for abdominal pain with nausea and vomiting. An extensive abdominal work-up was done today in the emergency department as we discussed, there was abnormal findings on your sonogram concerning your gallbladder, please follow-up with your GI specialist Dr. Prado this week. Return to the emergency department for worsening symptoms or other concerns. Thank you for visiting our Emergency Department. It was a pleasure taking care of you today in the emergency department and we appreciate you trusting us with your care. If any additional problems come up don't hesitate to return to visit us. Please follow up with your primary care provider so they can plan additional care if needed and know about the problem that you had. If symptoms worsen come back to the Emergency Department. Any concerning symptoms that start such as chest pain, shortness of air, weakness or numbness on one side of the body, running high fevers or any other concerning symptoms return to the ER. EMERGENCY DEPARTMENT GENERAL DISCHARGE INSTRUCTIONS Thank you for coming to [facility] Emergency Department (ED) today and trusting us with you care. We trust that you had a positive experience in our Emergency Department. If you wish to speak to the department management, you may call the Director at [phone]. YOUR FOLLOW UP INSTRUCTIONS ARE FOLLOWS: 1. Do you have a private Doctor? If you do not have a private doctor, please ask for a resource list of physicians or clinics that may be able to assist you with follo w up care. 2. The Emergency Physicain has interpreted your x-rays. The X-Ray specialist will also review them. If there is a change in the findings, you will be notified in 48 hours when at all possible. 3. A lab test or culture has been done, your results will be reviewed and you will be notified if you need a change in treatment. ADDITIONAL INSTRUCTIONS AND INFORMATION: 1. Your care today has been supervised by a physician who is specially trained in emergency care. Many problems require more than one evaluation for a complete diagnosis and treatment. We recommend that you schedule your follow up appointment as recommended to ensure complete treatment of you illness or injury. If you are unable to obtain follow up care and continue to have a problem, or if your condition worsens, we recommend that you return to the ED. 2. We are not able to safely determine your condition over the phone nor are we able to give sound medical advice over the phone. For these safety reasons, if you call for medical advice we will ask you to come to the ED for further evaluation. 3. If you have any questions regarding these discharge instructions please call the ED at [phone]. SAFETY INFORMATION: In the interest of safety, wellness, and injury prevention; we encourage you to wear your sealbelt, if you smoke; quite smoking, and we encourage family to use a pro tective helmet for bicycling and other sporting events that present an increased risk for head injury. IF YOUR SYMPTOMS WORSEN OR NEW SYMPTOMS DEVELOP, OR YOU HAVE CONCERNS ABOUT YOUR CONDITION; OR IF YOUR CONDITION WORSENS WHILE YOU ARE WAITING FOR YOUR FOLLOW UP APPOINTMENT; EITHER CONTACT YOUR PRIMARY CARE DOCTOR, THE PHYSICIAN WHOSE NAME AND NUMBER YOU WERE GIVEN, OR RETURN TO THE ED IMMEDIATELY. HÉCTOR PUGH APRN Dec 27, 2020 10:38
--- NOTE | 2020-12-27 11:03 | RAD ---
CT ABDOMEN+PELVIS W History: Reason: Abdominal pain, nausea, vomiting. / Spl. Instructions: IV omni 300 75 mls / History: Technique: After the administration of intravenous contrast, CT imaging was performed of the abdomen and pelvis. Multiplanar images are reviewed. Exposure: One or more of the following individualized dose reduction techniques were utilized for thi s examination: 1. Automated exposure control 2. Adjustment of the mA and/or kV according to patient size 3. Use of iterative reconstruction technique. Comparison: November 29, 2020 Findings: Lower chest: Significantly decreased left lower lobe consolidations with minimal residual groundglass opacities. No pleural effusion. Abdomen and pelvis: The liver, spleen, adrenal glands, pancreas and gallbladder are unremarkable. No biliary ductal dilatation. No renal calculus. No hydronephrosis. Normal appearance of the urinary roddy dder. Gastric antral wall thickening, increased compared to prior. Mild colonic diverticulosis. Normal appendix. No evidence of bowel obstruction. No pathologic lymphad enopathy. No ascites. Bones: Unchanged colonic lesion within the left posterior ilium. Impression: 1. Gastric antral wall thickening, increased compared to prior. Findings may relate to nondistention or gastritis. 2. Significantly decreased left lower lobe consolidations with minimal residual groundglass opacitie s. Electronically signed by: Constantine Dc DO (12/27/2020 11:01 AM) [id number]
--- NOTE | 2020-12-27 11:05 | RAD ---
US ABDOMEN LIMITED History: Reason: Pain Comparison: CT December 27, 2020. Technique: Transabdominal ultrasound images are obtained of the right upper quadrant. Findings: Liver is normal in echogenicity. Right hepatic lobe measures 17 cm. Portal flow is hepatopedal. Mild gallbladder sludge. No cholelithiasis. No gallbladder wall thickening. Common bile duct measures 2.4 mm in diameter. Visualized pancreas not well seen due to overlying bowel gas. The right kidney measures 11.2 x 4.2 x 4.1 cm. No hydronephrosis. Visualized portions of the aorta and IVC have normal caliber. IMPRESSION: 1. Mild gallbladder sludge. Electronically signed by: Constantine Dc DO (12/27/2020 11:02 AM) [id number]
[2020-12-27 12:11] VITALS: BP 107/56
== END 2020-12-27 12:17 | disposition home or self-care (01) ==
LOC: ER 08:21
DX: R11.2 Nausea with vomiting, unspecified (principal); R10.13 Epigastric pain; K21.9 Gastro-esophageal reflux disease without esophagitis; K58.9 Irritable bowel syndrome, unspecified; J45.909 Unspecified asthma, uncomplicated; Z88.5 Allergy status to narcotic agent
CPT/HCPCS: 36415; 74177; 76705; 80053; 83690; 96361; 96374; 96375; 99285; J0780; J2270; J3490; J7030; Q9967

== ENCOUNTER 2021-06-10 11:39 | Observation (INO) | payer SELFPAY ==
[~2021-06-10] VITALS: Ht 177.8 cm; Wt 105.9 kg
[2021-06-10] MEDS ORDERED: IV NORMAL SALINE 1000ML BAG 1,000 ML IV SCH (12:00)
[2021-06-10] MEDS ORDERED: fentaNYL PF VIAL 100 MCG/2 ML VIAL IVP ONE (12:30)
[2021-06-10] MEDS ORDERED: PROCHLORPERAZINE 10 MG/2 ML VIAL. IV ONE (12:30)
[2021-06-10 13:02] LABS: BASO # 0.1 x10^3/uL (0.0-0.2); BASO % 1 % (0-3); EOS # 0.5 x10^3/uL (0.0-0.7); EOS % 3 % (0-3); HEMATOCRIT 41.4 % (39.0-53.0); HEMOGLOBIN 13.7 g/dL (13.0-17.5); LYMPH # 2.6 x10^3/uL (1.0-4.8); LYMPH % 12 % (24-48); MEAN CORPUSCULAR HEMOGLOBIN 33 pg (25-35); MEAN CORPUSCULAR HGB CONC 33 g/dL (31-37); MEAN CORPUSCULAR VOLUME 99 fL (79-100); MONO % 5 % (0-9); NEUT # 16.8 x10^3/uL (1.8-7.7); NEUT % 80 % (31-73); PLATELET COUNT 372 x10^3/uL (140-400); RED BLOOD COUNT 4.17 x10^6/uL (4.30-5.70); RED CELL DISTRIBUTION WIDTH 13.3 % (11.5-14.5); WHITE BLOOD COUNT 20.9 x10^3/uL (4.0-11.0)
--- NOTE | 2021-06-10 13:21 | PHYS DOC ---
Past Medical History Past Medical History: Asthma, GERD, IBS, Other Additional Past Medical Histor: STOMACH ULCERS Past Surgical History: Other Additional Past Surgical Histo: RT HAND SURGERY Smoking Status: Never Smoker Alcohol Use: None Drug Use: Marijuana General Adult EDM: Chief Complaint: ABDOMINAL PAIN HPI: HPI: Patient is a 35 year old male who presents with states this morning he woke up and he passed a blood clot after a bowel movement. He states he did not work in about 11:00 he came home and he has been vomiting then he states he just has pain all over his abdomen. States it feels like cramping up. This is not the first time that this is happened. He does smoke marijuana and he had does have a history of IBS, gastritis, gastric ulcers, GERD, asthma and pancreatitis. Rates his pain 10 out of 10 at this time. States Compazine works best for him. He states that he does have Compazine pills at home but it is not working. He has not had a EGD or colonoscopy since 2018. Review of Systems: Review of Systems: Constitutional: Denies fever or chills. [] Eyes: Denies change in visual acuity. [] HENT: Denies nasal congestion or sore throat. [] Respiratory: Denies cough or shortness of breath. [] Cardiovascular: Denies chest pain or edema. [] GI: + abdominal pain,+ nausea, +vomiting, + 1 blood clot in stools or denies diarrhea. [] : Denies dysuria. [] Musculoskeletal: Denies back pain or joint pain. [] Integument: Denies rash. [] Neurologic: Denies headache, focal weakness or sensory changes. [] Endocrine: Denies polyuria or polydipsia. [] Lymphatic: Denies swollen glands. [] Psychiatric: Denies depression or anxiety. [] Heart Score: C/O Chest Pain: No HEART Score for Chest Pain: HEART Score for Chest Pain Response (Comments) Value History Slighlty/Non-Suspicious 0 ECG Normal 0 Age < 45 0 Risk Factors 1 or 2 Risk Factors 1 Troponin < Normal Limit 0 Total 1 Risk Factors: Risk Factors: DM, Current or recent (<one month) smoker, HTN, HLP, family history of CAD, obesity. Risk Scores: Score 0 - 3: 2.5% MACE over next 6 weeks - Discharge Home Score 4 - 6: 20.3% MACE over next 6 weeks - Admit for Clinical Observation Score 7 - 10: 72.7% MACE over next 6 weeks - Early Invasive Strategies Current Medications: Current Medications Medications (Trade) Dose Ordered Sig/Keerthi Start Time Stop Time Status Last Admin Dose Admin Fentanyl Citrate (Fentanyl 2ml Vial) 75 mcg 1X ONCE 06/10/21 12:30 06/10/21 12:31 DC 06/10/21 12:51 75 MCG Prochlorperazine Edisylate (Compazine) 10 mg 1X ONCE 06/10/21 12:30 06/10/21 12:31 DC 06/10/21 12:48 10 MG Sodium Chloride 1,000 ml @ 1,000 mls/hr Q1H 06/10/21 12:00 06/10/21 12:59 DC 06/10/21 12:40 1,000 MLS/HR Allergies: Allergies: Allergies Coded Allergies Type Severity Reaction Last Updated Verified naproxen Allergy Intermediate 06/10/21 Yes Physical Exam: PE: Constitutional: Well developed, well nourished, no acute distress, non-toxic appearance. [] HENT: Normocephalic, atraumatic, bilateral external ears normal, oropharynx moist, no oral exudates, nose normal. [] Eyes: PERRLA, EOMI, conjunctiva normal, no discharge. [] Neck: Normal range of motion, no tenderness, supple, no stridor. [] Cardiovascular:Heart rate regular rhythm, no murmur [] Lungs & Thorax: Bilateral breath sounds clear to auscultation [] Abdomen: Bowel sounds normal, soft, generalized tenderness, no masses, no pulsatile masses. [] Skin: Warm, dry, no erythema, no rash. [] Back: No tenderness, no CVA tenderness. [] Extremities: No tenderness, no cyanosis, no clubbing, ROM intact, no edema. [] Neurologic: Alert and oriented X 3, normal motor function, normal sensory function, no focal deficits noted. [] Psychologic: Affect normal, judgement normal, mood normal. [] Current Patient Data: Labs: Laboratory Tests Test 06/10/21 12:45 White Blood Count 20.9 x10^3/uL (4.0-11.0) H Red Blood Count 4.17 x10^6/uL (4.30-5.70) L Hemoglobin 13.7 g/dL (13.0-17.5) Hematocrit 41.4 % (39.0-53.0) Mean Corpuscular Volume 99 fL (79-100) Mean Corpuscular Hemoglobin 33 pg (25-35) Mean Corpuscular Hemoglobin Concent 33 g/dL (31-37) Red Cell Distribution Width 13.3 % (11.5-14.5) Platelet Count 372 x10^3/uL (140-400) Neutrophils (%) (Auto) 80 % (31-73) H Lymphocytes (%) (Auto) 12 % (24-48) L Monocytes (%) (Auto) 5 % (0-9) Eosinophils (%) (Auto) 3 % (0-3) Basophils (%) (Auto) 1 % (0-3) Neutrophils # (Auto) 16.8 x10^3/uL (1.8-7.7) H Lymphocytes # (Auto) 2.6 x10^3/uL (1.0-4.8) Monocytes # (Auto) 1.0 x10^3/uL (0.0-1.1) Eosinophils # (Auto) 0.5 x10^3/uL (0.0-0.7) Basophils # (Auto) 0.1 x10^3/uL (0.0-0.2) Platelet Estimate Pending Laboratory Tests 06/10/21 12:45 Vital Signs: Vital Signs Date Time Temp Pulse Resp B/P (MAP) Pulse Ox O2 Delivery O2 Flow Rate FiO2 06/10/21 12:51 20 100 Room Air 06/10/21 12:00 97.7 79 134/81 (98) 97.7 EKG: EK and read by Dr. Carmen is a sinus rhythm and no STEMI Radiology/Procedures: Radiology/Procedures: [] Impression: [facility] [address] [place], [place] [id number] IMAGING REPORT Signed PATIENT: CÉSAR NAVARROCOUNT: [id number] : 1985 LOCATION: ER AGE: 35 SEX: M EXAM STATUS: REG ER ORD. PHYSICIAN: TOR FORD APRN REASON: abd pain, vomiting PROCEDURE: CT ABD PELV W/ IV CONTRST ONLY CT ABDOMEN+PELVIS W History: Abdominal pain, vomiting. Comparison: CT abdomen and pelvis 12/27/2020 Technique: CT of the abdomen and pelvis with intravenous contrast. Findings: The lung bases are clear. The liver, gallbladder, pancreas, spleen, adrenal glands and kidneys are unremarkable. There is mild gastric antral thickening which appears less conspicuous however persistent from comparison CT. The small bowel is unremarkable. Normal appendix. Mild diverticulosis. No colonic wall thickening or pericolonic inflammatory changes. The bladder and prostate are unremarkable. No intra-abdominal free air or free fluid. Vasculature is within normal limits. No adenopathy. Left iliac bone island. No acute osseous abnormalities. Soft tissues are unremarkable. Impression: 1. Persistent however less conspicuous gastric antrum wall thickening may represent gastritis. Consider endoscopy for further evaluation. ------ Exposure: One or more of the following individualized dose reduction techniques were utilized for this examination: 1. Automated exposure control 2. Adjustment of the mA and/or kV according to patient size 3. Use of iterative reconstruction technique. Electronically signed by: Raghu Chandler MD (06/10/2021 2:28 PM) [id number] DICTATED and SIGNED BY: RAGHU CHANDLER MD DATE: 06/10/211423 Course & Med Decision Making: Course & Med Decision Making Pertinent Labs and Imaging studies reviewed. (See chart for details) See HPI. Alert and oriented x4. Ambulatory with a steady gait. Abdomen is soft and nontender. Speaks in full clear sentences. Skin pink warm and dry. Afebrile. CT is showing gastritis. Patient is not tolerating p.o. He states that his pain is better but he still very nauseated. I spoke to Dr. Gauthier for admission. He states to go ahead and give the patient Flagyl and levofloxacin. I have put in a consult for Dr. Prado GI. [] Deric Disclaimer: Deric Disclaimer: This electronic medical record was generated, in whole or in part, using a voice recognition dictation system. Departure Departure Impression: Primary Impression: Gastritis Qualified Codes: K29.00 - Acute gastritis without bleeding Additional Impression: Nausea & vomiting Qualified Codes: R11.2 - Nausea with vomiting, unspecified Disposition: ADMITTED INPATIENT Admitting Physician: Caren Gauthier Condition: STABLE Referrals: CAREN GAUTHIER MD (PCP) TOR FORD [employer]ST[employer] PROJECT MANAGER Jun 10, 2021 13:21
[2021-06-10 13:30] LABS: % BANDS 1 % (0-9); % EOS 2 % (0-5); % LYMPHS 11 % (24-48); % MONOS 6 % (0-10); % SEGS 80 % (35-66)
[2021-06-10] MEDS ORDERED: IOHEXOL 300 MG/ML 100ML VIAL. IV ONE (13:30)
[2021-06-10 13:32] LABS: PLT ESTIMATE ADEQUATE (ADEQUATE)
[2021-06-10] MEDS ORDERED: CONTRAST GIVEN. MC PRN (13:45)
[2021-06-10 13:58] LABS: CALCIUM 9.5 mg/dL (8.5-10.1); CREATININE 1.4 mg/dL (0.7-1.3); GFR 69.8; POTASSIUM 3.7 mmol/L (3.5-5.1)
[2021-06-10 14:04] LABS: ALBUMIN 4.7 g/dL (3.4-5.0); ALBUMIN/GLOBULIN RATIO 1.5 (1.0-1.7); TOTAL BILIRUBIN 0.3 mg/dL (0.2-1.0); TOTAL PROTEIN 7.9 g/dL (6.4-8.2)
--- NOTE | 2021-06-10 14:30 | RAD ---
CT ABDOMEN+PELVIS W History: Abdominal pain, vomiting. Comparison: CT abdomen and pelvis 12/27/2020 Technique: CT of the abdomen and pelvis with intravenous contrast. Findings: The lung bases are clear. The liver, gallbladder, pancreas, spleen, adrenal glands and kidneys are un remarkable. There is mild gastric antral thickening which appears less conspicuous however persistent from compar rylee CT. The small bowel is unremarkable. Normal appendix. Mild diverticulosis. No colonic wall thick ening or pericolonic inflammatory changes. The bladder and prostate are unremarkable. No intra-abdominal free air or free fluid. Vasculature is within normal limits. No adenopathy. Left iliac bone island. No acute osseous abnormalities. Soft tis sues are unremarkable. Impression: 1. Persistent however less conspicuous gastric antrum wall thickening may represent gastritis. Consi alejandro endoscopy for further evaluation. ------ Exposure: One or more of the following individualized dose reduction techniques were utilized for thi s examination: 1. Automated exposure control 2. Adjustment of the mA and/or kV according to patient size 3. Use of iterative reconstruction technique. Electronically signed by: Raghu Nance MD (06/10/2021 2:28 PM) [id number]
[2021-06-10] MEDS ORDERED: PANTOPRAZOLE IV PUSH 40 MG VIAL. IVP ONE (15:00)
[2021-06-10 15:22] LABS: BARBITURATES NEG (NEG); BENZODIAZEPINES NEG (NEG); CANNABINOIDS POS (NEG); COCAINE NEG (NEG); METHADONE NEG (NEG); OPIATES NEG (NEG); PHENCYCLIDINE NEG (NEG)
[2021-06-10 15:26] LABS: AMPHETAMINE/METHAMPHETAMINE NEG (NEG)
[2021-06-10 15:31] LABS: AMORPHOUS SEDIMENT,UR PRESENT /HPF; BACTERIA,URINE 0 /HPF (0-FEW); RBC,URINE 0 /HPF (0-2); WBC,URINE 0 /HPF (0-4)
[2021-06-10] MEDS ORDERED: ONDANSETRON PF 4 MG/2 ML VIAL. IVP ONE (16:00)
[2021-06-10] MEDS ORDERED: IV NORMAL SALINE 1000ML BAG 1,000 ML IV ONE (16:00)
[2021-06-10 16:17] LABS: INFLUENZA A PATIENT NEGATIVE (NEGATIVE); INFLUENZA B PATIENT NEGATIVE (NEGATIVE)
[2021-06-10] MEDS: ONDANSETRON PF 4 MG/2 ML VIAL. IVP PRN (18:26)
[2021-06-10] MEDS: IV NORMAL SALINE 1000ML BAG 1,000 ML IV SCH (20:02)
[2021-06-10] MEDS: PROCHLORPERAZINE 10 MG/2 ML VIAL. IV PRN (20:03)
[2021-06-10 20:13] VITALS: BP 137/77
--- NOTE | 2021-06-10 20:13 | NUR ---
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
[2021-06-11] VITALS (7 sets, daily range): BP systolic 110–138; BP diastolic 55–76
[2021-06-11] MEDS: PROCHLORPERAZINE 10 MG/2 ML VIAL. IV PRN ×3 (02:12→18:48)
[2021-06-11] MEDS: IV NORMAL SALINE 1000ML BAG 1,000 ML IV SCH (06:04)
--- NOTE | 2021-06-11 06:58 | EKG ---
[facility] [address] [place] [address] Test Date: 2021-06-10 Test Time: 12:20:05 Pat Name: CÉSAR KENNYepartment: Room: 202 Gender: M Registered Nurse Supervisor: : [id number] Requested By: TOR FORD Order Number: [id number] Reading MD: Bob Clayton Measurements Intervals [place] Rate: 70 P: 54 VT: 168 QRS: 68 QRSD: 84 T: 51 QT: 354 QTc: 385 Interpretive Statements SINUS RHYTHM Electronically Signed On 06-11-2021 8:54:57 CDT by Bob Clayton
[2021-06-11 08:30] LABS: BASO # 0.1 x10^3/uL (0.0-0.2); BASO % 1 % (0-3); EOS % 0 % (0-3); HEMOGLOBIN 12.4 g/dL (13.0-17.5); LYMPH % 9 % (24-48); MEAN CORPUSCULAR HEMOGLOBIN 33 pg (25-35); MEAN CORPUSCULAR HGB CONC 33 g/dL (31-37); MEAN CORPUSCULAR VOLUME 98 fL (79-100); MONO # 0.8 x10^3/uL (0.0-1.1); MONO % 7 % (0-9); NEUT # 9.9 x10^3/uL (1.8-7.7); NEUT % 84 % (31-73); PLATELET COUNT 287 x10^3/uL (140-400); RED BLOOD COUNT 3.79 x10^6/uL (4.30-5.70); RED CELL DISTRIBUTION WIDTH 13.3 % (11.5-14.5); WHITE BLOOD COUNT 11.7 x10^3/uL (4.0-11.0)
[2021-06-11 08:47] LABS: ALBUMIN 3.7 g/dL (3.4-5.0); ALBUMIN/GLOBULIN RATIO 1.1 (1.0-1.7); CALCIUM 8.4 mg/dL (8.5-10.1); CREATININE 1.1 mg/dL (0.7-1.3); GFR 92.2; POTASSIUM 3.3 mmol/L (3.5-5.1); TOTAL BILIRUBIN 0.5 mg/dL (0.2-1.0); TOTAL PROTEIN 7.1 g/dL (6.4-8.2)
[2021-06-11] MEDS: ONDANSETRON PF 4 MG/2 ML VIAL. IVP PRN (09:51)
--- NOTE | 2021-06-11 12:39 | PDOC ---
Provider Note Date of Service: DATE: 06/11/21 TIME: 12:38 Provider Note Pt seen.H&P dictated.#[id number]. Justifications for Admission Other Justification JAVIER GAUTHIER MD Jun 11, 2021 12:39
[2021-06-11] MEDS ORDERED: PANTOPRAZOLE IV PUSH 40 MG VIAL. IVP ONE (13:00)
[2021-06-11] MEDS: POTASSIUM CL 20MEQ D5-0.9%NACL 1,000 ML IV SCH ×2 (13:19→21:02)
--- NOTE | 2021-06-11 14:32 | HP ---
DATE OF SERVICE: 06/11/2021 ADMIT DATE: 06/10/2021 REASON FOR ADMISSION TO THE HOSPITAL: Abdominal pain, gastritis. HISTORY OF PRESENT ILLNESS: The patient is a 35-year-old male who had a history of gastritis, IBS. The patient has been in the hospital more than 3 years ago, but the last time he was in the hospital 6 months ago at [place]. He said he had passed some blood after a bowel movement, abdominal pain, vomiting and cramping, not able to keep anything down and he was brought to the hospital and his white count was high at 20. CT scan shows no colon inflammation. The patient was admitted to the hospital. The patient was initially started on broad-spectrum antibiotic because his white count was high. Today, it came back to normal, so it was reactive and antibiotic was stopped. PAST MEDICAL HISTORY: He had EGD, colonoscopy in 2018 and also recently 6 months ago, had a history of stomach ulcers, IBS. PAST SURGICAL HISTORY: Hand surgery. PERSONAL HISTORY: Marijuana. Denies alcohol. Denies any street drugs. FAMILY HISTORY: Hypertension. REVIEW OF SYMPTOMS: Complains of abdominal pain, nausea. PHYSICAL EXAMINATION: VITAL SIGNS: Temperature 97, pulse 71, respirations 18, blood pressure 130/73, 98 on room air. HEENT: Head is atraumatic. Pupils equal. Oral cavity, no congestion. NECK: Supple. Thyroid not enlarged. JVD not elevated. CHEST: Symmetrical. CARDIOVASCULAR: S1, S2. LUNGS: Clear. ABDOMEN: Slightly tender in the epigastric area. No rebound. Bowel sounds are present. EXTERNAL GENITALIA: No Prado. RECTUM: Deferred. EXTREMITIES: No calf tenderness, no edema. NEUROLOGIC: Moving all extremities. No focal deficits noted. LABORATORY DATA: Shows a white count of 21, came down to 11 this morning, hemoglobin 13, platelets 237. Electrolytes: Sodium 140, potassium 3.7, chloride 105, bicarbonate 22, BUN 21, creatinine 1.4, glucose 149. LFTs normal. Urine was negative. Toxicology positive for marijuana, cannabis. Influenza negative. COVID rapid test was negative. CT scan of the abdomen and pelvis shows a gastric antral wall thickening, may represent gastritis, no colon wall thickening. FINAL IMPRESSION: 1. Gastritis. 2. History of gastritis, irritable bowel syndrome. 3. Leukocytosis, reactive. 4. Acute renal insufficiency. PLAN: At this time, admit to the hospital. GI was consulted. IV fluids. Initially started on broad-spectrum antibiotics. White count came back to normal. Stop Levaquin and Flagyl and clear liquid diet and see how he improves. Creatinine improved from 1.4 to 1.1 with fluids. [facility] [place] [facility]: FREDDIE/stefani TID: [id number]
--- NOTE | 2021-06-11 15:10 | PDOC2 ---
GI CONSULT Reason For Consult: gastritis HPI: HPI: 35-year-old male who had a history of gastritis, IBS. passed some blood after a bowel movement, abdominal pain, vomiting and cramping, not able to keep anything down and he was brought to the hospital and his white count was high at 20. CT scan shows gastritis The patient was initially started on broad-spectrum antibiotic because his white count was high. Today, it came back to normal, so it was reactive and antibiotic was stopped. PMH: PMH: PAST GI HISTORY: He had EGD, colonoscopy in 2018 and also recently 6 Gastric Emotying Scan 06/26/[address] Prado 06/25/2019 with scattered erosions and linear ulcer inthe esophagus H/o GERD on pantoprazole 40mg QD - question compliance. No dysphagia, weight loss, or melena. EGD and colonoscopy in 06/2017 @ [facility]: Grade D esophagitis, H. pylori negative gastritis, hemorrhoids, and otherwise normal colonoscopy. PMH: PMH: asthma, GERD right hand surgery had a history of stomach ulcers, IBS FH: Family History: Other (father - gallstones) Social History: ALCOHOL: other Drugs: Marijuana (+3/3 times here) ROS: GEN: +sweats HEENT: Denies blurred vision, sore throat CV: Denies chest pain RESP: Denies shortness of air, cough GI: Per HPI : Denies hematuria, dysuria ENDO: Denies weight changes NEURO: Denies confusion, dizziness MSK: Denies weakness, joint pain/swelling SKIN: Denies jaundice, pruritus FH: Family History: Other Social History: ALCOHOL: other Drugs: Marijuana ROS: GEN: Denies fevers, chills, sweats HEENT: Denies blurred vision, sore throat CV: Denies chest pain RESP: Denies shortness of air, cough GI: Per HPI : Denies hematuria, dysuria ENDO: Denies weight changes NEURO: Denies confusion, dizziness MSK: Denies weakness, joint pain/swelling SKIN: Denies jaundice, pruritus VItals: Vitals: Vital Signs Date Time Temp Pulse Resp B/P (MAP) Pulse Ox O2 Delivery O2 Flow Rate FiO2 06/11/21 11:00 98.5 61 18 138/75 (96) 96 Room Air 98.5 Labs: Labs: Laboratory Tests Test 06/10/21 15:08 06/10/21 15:43 06/11/21 08:00 Urine Collection Type Unknown Urine Color (Auto) Light yellow Urine Turbidity Hazy Urine pH (Auto) 8.0 (<5.0-8.0) Urine Specific [place] 1.043 (1.000-1.030) Urine Protein (Auto) Negative mg/dL (Negative) Urine Glucose (Auto)(UA) Negative mg/dL (Negative) Urine Ketones (Auto) 20 mg/dL (Negative) Urine Blood (Auto) Negative (Negative) Urine Nitrite Negative (Negative) Urine Bilirubin (Auto) Negative (Negative) Urine Urobilinogen (Auto) Normal mg/dL (Normal) Urine Leukocyte Esterase (Auto) Negative (Negative) Urine RBC 0 /HPF (0-2) Urine WBC 0 /HPF (0-4) Urine Amorphous Sediment Present /HPF Urine Bacteria 0 /HPF (0-FEW) Urine Mucus Slight /LPF Urine Opiates Screen Neg (NEG) Urine Methadone Screen Neg (NEG) Urine Barbiturates Neg (NEG) Urine Phencyclidine Screen Neg (NEG) Urine Amphetamine/Methamphetamine Neg (NEG) Urine Benzodiazepines Screen Neg (NEG) Urine Cocaine Screen Neg (NEG) Urine Cannabinoids Screen Pos (NEG) Urine Ethyl Alcohol Neg (NEG) Influenza Type A Antigen Negative (NEGATIVE) Influenza Type B Antigen Negative (NEGATIVE) SARS-CoV-2 Antigen (Rapid) Negative (NEGATIVE) White Blood Count 11.7 x10^3/uL (4.0-11.0) Red Blood Count 3.79 x10^6/uL (4.30-5.70) Hemoglobin 12.4 g/dL (13.0-17.5) Hematocrit 37.0 % (39.0-53.0) Mean Corpuscular Volume 98 fL (79-100) Mean Corpuscular Hemoglobin 33 pg (25-35) Mean Corpuscular Hemoglobin Concent 33 g/dL (31-37) Red Cell Distribution Width 13.3 % (11.5-14.5) Platelet Count 287 x10^3/uL (140-400) Neutrophils (%) (Auto) 84 % (31-73) Lymphocytes (%) (Auto) 9 % (24-48) Monocytes (%) (Auto) 7 % (0-9) Eosinophils (%) (Auto) 0 % (0-3) Basophils (%) (Auto) 1 % (0-3) Neutrophils # (Auto) 9.9 x10^3/uL (1.8-7.7) Lymphocytes # (Auto) 1.0 x10^3/uL (1.0-4.8) Monocytes # (Auto) 0.8 x10^3/uL (0.0-1.1) Eosinophils # (Auto) 0.0 x10^3/uL (0.0-0.7) Basophils # (Auto) 0.1 x10^3/uL (0.0-0.2) Sodium Level 140 mmol/L (136-145) Potassium Level 3.3 mmol/L (3.5-5.1) Chloride Level 104 mmol/L (98-107) Carbon Dioxide Level 26 mmol/L (21-32) Anion Gap 10 (6-14) Blood Urea Nitrogen 18 mg/dL (8-26) Creatinine 1.1 mg/dL (0.7-1.3) Estimated GFR (Cockcroft-Gault) 92.2 BUN/Creatinine Ratio 16 (6-20) Glucose Level 116 mg/dL (70-99) Calcium Level 8.4 mg/dL (8.5-10.1) Total Bilirubin 0.5 mg/dL (0.2-1.0) Aspartate Amino Transf (AST/SGOT) 26 U/L (15-37) Alanine Aminotransferase (ALT/SGPT) 29 U/L (16-63) Alkaline Phosphatase 65 U/L (46-116) Total Protein 7.1 g/dL (6.4-8.2) Albumin 3.7 g/dL (3.4-5.0) Albumin/Globulin Ratio 1.1 (1.0-1.7) Imaging: Imaging: CT ABDOMEN+PELVIS W History: Abdominal pain, vomiting. Comparison: CT abdomen and pelvis 12/27/2020 Technique: CT of the abdomen and pelvis with intravenous contrast. Findings: The lung bases are clear. The liver, gallbladder, pancreas, spleen, adrenal glands and kidneys are unremarkable. There is mild gastric antral thickening which appears less conspicuous however persistent from comparison CT. The small bowel is unremarkable. Normal appendix. Mild diverticulosis. No colonic wall thickening or pericolonic inflammatory changes. The bladder and prostate are unremarkable. No intra-abdominal free air or free fluid. Vasculature is within normal limits. No adenopathy. Left iliac bone island. No acute osseous abnormalities. Soft tissues are unremarkable. Impression: 1. Persistent however less conspicuous gastric antrum wall thickening may represent gastritis. Consider endoscopy for further evaluation. PE: HEENT: Head is atraumatic. Pupils equal. Oral cavity, no congestion. NECK: Supple. Thyroid not enlarged. JVD not elevated. CHEST: Symmetrical. CARDIOVASCULAR: S1, S2. LUNGS: Clear. ABDOMEN: Slightly tender in the epigastric area. No rebound. Bowel sounds are present. EXTERNAL GENITALIA: No Prado. RECTUM: Deferred. EXTREMITIES: No calf tenderness, no edema. NEUROLOGIC: Moving all extremities. No focal deficits noted. A/P: A/P: A/P 1) Gastritis: seen on CT with last EGD with gastritis and no Helicobacter. Favor continue PPI. If symptoms improve in house, consider discharge with outpatient EGD 2) N/V: prn meds 3) Anemia: Hgb 13/7 to 12.4, he describes some blood in his stool, Monitor BETY SO MD Jun 11, 2021 15:10
[2021-06-12 03:00] VITALS: BP 111/71
[2021-06-12] MEDS ORDERED: NACL IV SCH (05:30)
[2021-06-12] MEDS ORDERED: DEXTROSE IV SCH (05:30)
[2021-06-12] MEDS ORDERED: POTASSIUM CHLORIDE IV SCH (05:30)
[2021-06-12 07:00] VITALS: BP 123/80
[2021-06-12] MEDS ORDERED: PANTOPRAZOLE IV PUSH 40 MG VIAL. IVP SCH (07:30)
[2021-06-12 07:34] LABS: BASO # 0.1 x10^3/uL (0.0-0.2); BASO % 1 % (0-3); EOS # 0.1 x10^3/uL (0.0-0.7); EOS % 1 % (0-3); HEMATOCRIT 37.8 % (39.0-53.0); HEMOGLOBIN 12.5 g/dL (13.0-17.5); LYMPH # 2.5 x10^3/uL (1.0-4.8); LYMPH % 25 % (24-48); MEAN CORPUSCULAR HEMOGLOBIN 33 pg (25-35); MEAN CORPUSCULAR HGB CONC 33 g/dL (31-37); MEAN CORPUSCULAR VOLUME 99 fL (79-100); MONO # 0.9 x10^3/uL (0.0-1.1); MONO % 9 % (0-9); NEUT # 6.7 x10^3/uL (1.8-7.7); NEUT % 65 % (31-73); PLATELET COUNT 266 x10^3/uL (140-400); RED BLOOD COUNT 3.81 x10^6/uL (4.30-5.70); RED CELL DISTRIBUTION WIDTH 13.3 % (11.5-14.5); WHITE BLOOD COUNT 10.4 x10^3/uL (4.0-11.0)
[2021-06-12 07:54] LABS: CALCIUM 8.5 mg/dL (8.5-10.1); CREATININE 1.3 mg/dL (0.7-1.3); POTASSIUM 3.7 mmol/L (3.5-5.1)
[2021-06-12 11:00] VITALS: BP 115/75
--- NOTE | 2021-06-12 12:18 | PDOC3 ---
IM DISCHARGE SUMMARY Date of Admission Date of Admission Date of Admission: Jun 10, 2021 at 16:32 Date of Discharge Date of Discharge June 12, 2021 Primary Diagnosis Primary Diagnosis 1. Gastritis. 2. History of gastritis, irritable bowel syndrome. 3. Leukocytosis, reactive. 4. Acute renal insufficiency. Consults Consults Kaiser Prado MD Labs Labs Laboratory Tests Test 06/12/21 06:00 White Blood Count 10.4 x10^3/uL (4.0-11.0) Red Blood Count 3.81 x10^6/uL (4.30-5.70) L Hemoglobin 12.5 g/dL (13.0-17.5) L Hematocrit 37.8 % (39.0-53.0) L Mean Corpuscular Volume 99 fL (79-100) Mean Corpuscular Hemoglobin 33 pg (25-35) Mean Corpuscular Hemoglobin Concent 33 g/dL (31-37) Red Cell Distribution Width 13.3 % (11.5-14.5) Platelet Count 266 x10^3/uL (140-400) Neutrophils (%) (Auto) 65 % (31-73) Lymphocytes (%) (Auto) 25 % (24-48) Monocytes (%) (Auto) 9 % (0-9) Eosinophils (%) (Auto) 1 % (0-3) Basophils (%) (Auto) 1 % (0-3) Neutrophils # (Auto) 6.7 x10^3/uL (1.8-7.7) Lymphocytes # (Auto) 2.5 x10^3/uL (1.0-4.8) Monocytes # (Auto) 0.9 x10^3/uL (0.0-1.1) Eosinophils # (Auto) 0.1 x10^3/uL (0.0-0.7) Basophils # (Auto) 0.1 x10^3/uL (0.0-0.2) Sodium Level 144 mmol/L (136-145) Potassium Level 3.7 mmol/L (3.5-5.1) Chloride Level 108 mmol/L (98-107) H Carbon Dioxide Level 26 mmol/L (21-32) Anion Gap 10 (6-14) Blood Urea Nitrogen 18 mg/dL (8-26) Creatinine 1.3 mg/dL (0.7-1.3) Estimated GFR (Cockcroft-Gault) 76.0 Glucose Level 93 mg/dL (70-99) Calcium Level 8.5 mg/dL (8.5-10.1) Laboratory Tests 06/12/21 06:00 Laboratory Tests 06/12/21 06:00 Brief hospital course Brief hospital course The patient is a 35-year-old male who had a history of gastritis, IBS. The patient has been in the hospital more than 3 years ago, but the last time he was in the hospital 6 months ago at [place]. He said he had passed some blood after a bowel movement, abdominal pain, vomiting and cramping, not able to keep anything down and he was brought to the hospital and his white count was high at 20. CT scan shows no colon inflammation. The patient was admitted to the hospital. The patient was initially started on broad-spectrum antibiotic because his white count was high. Today, it came back to normal, so it was reactive and antibiotic was stopped. For more details regarding the past history, family history, social history, surgical history and other details, please refer to the H&P. Patient is doing well. He does not have any more diarrhea, nausea or vomiting. WBC count is 10.5. He has pantoprazole and Compazine at home. Okay to discharge home. Follow-up with in 1 week. Medications Medications reviewed and reconciled for discharge. Home Meds Active Scripts Doxycycline Hyclate (DOXYCYCLINE HYCLATE) 100 Mg Capsule, 1 CAP PO BID, #20 CAP Prov:TOR FORD APRN 11/29/20 Dicyclomine Hcl (DICYCLOMINE HCL) 10 Mg Capsule, 1 CAP PO PRN Q6HRS PRN for ABDOMINAL CRAMPS, #20 CAP 3 Refills Prov:SHIRLEY JOEL DO 08/14/20 Metoclopramide Hcl (REGLAN) 10 Mg Tablet, 1 TAB PO QID PRN for NAUSEA, #30 TAB 0 Refills before food and bedtime Prov:SHIRLEY JOEL DO 08/14/20 Orphenadrine Citrate (ORPHENADRINE CITRATE) 100 Mg Tablet.er, 100 MG PO BID PRN for MUSCLE PAIN, #14 TAB Prov:KAISER BARTHOLOMEW DO 03/15/20 Hyoscyamine Sulfate (LEVSIN-SL) 0.125 Mg Tab.subl, 0.125 MG SL Q6HRS PRN for ABDOMINAL PAIN, #30 TAB Prov:EMILIANO MAY MD 12/25/19 Ondansetron Hcl (ZOFRAN) 4 Mg Tablet, 1 TAB PO Q6HRS for nausea, #15 TAB Prov:EMILIANO MAY MD 12/25/19 Ondansetron Hcl (ZOFRAN) 8 Mg Tablet, 1 TAB PO Q8HRS for nausea for 30 Days, #90 TAB 1 Refill Prov:JAVIER GAUTHIER MD 06/27/19 Sucralfate (CARAFATE) 1 Gm Tablet, 1 TAB PO BID for gastirits for 30 Days, #60 TAB 0 Refills Prov:JAVIER GAUTHIER MD 06/27/19 Pantoprazole Sodium (PROTONIX) 20 Mg Tablet., 40 MG PO BID for gastritis for 30 Days, #120 TAB Prov:JAVIER GAUTHIER MD 06/27/19 Sucralfate (CARAFATE) 1 Gm Tablet, 1 TAB PO QID, #40 TAB 0 Refills Prov:NATHAN GRACE MD 11/11/18 Pantoprazole Sodium (PROTONIX ) 40 Mg Tablet., 40 MG PO DAILYAC for GERD, #30 TAB Prov:NATHAN GRACE MD 11/11/18 Doxycycline Hyclate (DOXYCYCLINE HYCLATE) 100 Mg Capsule, 1 CAP PO BID, #20 CAP Prov:SARAH DEY MD 11/05/17 Prednisone (PREDNISONE) 50 Mg Tablet, 1 TAB PO DAILY, #5 TAB Prov:JESUS MANUEL MORGAN MD 04/29/16 Albuterol Sulfate (VENTOLIN HFA INHALER) 18 Gm Hfa.aer.ad, 2 PUFF INH QID PRN for WHEEZING, #1 INHALER 5 Refills Prov:JESUS MANUEL MORGAN MD 04/29/16 Allergy Allergies Coded Allergies Type Severity Reaction Last Updated Verified naproxen Allergy Intermediate 06/10/21 Yes aspirin Adverse Reaction Severe Nausea and Vomiting 06/10/21 Yes Follow up in 1 week. DISPOSITION: Home Comments Discharge Management - 35 minutes. For other details please refer to discharge instructions Justicifation of Admission Dx: Justifications for Admission: Justification of Admission Dx: Comment: (Acute gastroenteritis with leukocytosi s.) NOEMI GRIMES MD Jun 12, 2021 12:18
--- NOTE | 2021-06-12 12:22 | DISCH ---
DISCHARGE INSTRUCTIONS Condition on Discharge Condition on Discharge: Stable Activity After Discharge Activity Instructions for Disc: Activity as tolerated Exercise Instruction after Dis: Progress as tolerated Driving Instructions after Dis: Do not drive today Weight Bearing Status after Di: Full weight bearing Diet after Discharge Diet after Discharge: GI Soft, Regular Diet Texture: Nothing by Mouth Liquid Texture: Thin Liquid Swallowing Supervision: None needed Contacting the [facility] after DC Call your doctor for: Concerns you may have Follow-Up Follow up with: in 1 week Treatment/Equipment after DC Adaptive Equipment Issued: None NOEMI GRIMES MD Jun 12, 2021 12:22
--- NOTE | 2021-06-12 12:52 | NUR ---
Discharge Note: PT DISCHARGED HOME WITH SELF CARE. PT LEFT FACILITY VIA PRIVATE VEHICLE WITH SPOUSE AT 1250. PT STABLE AND ALERT UPON DISCHARGE. PT HAD NO IV ACCESS TO REMOVED. PT EDUCATED ABOUT DISCHARGE INSTRUCTIONS, DISHCARGE MEDICATIONS, AND FOLLOW-UP CARE INSTRUCTIONS, NO CONCERNS VOICED AT THIS TIME. PT LEFT WITH ALL PERSONAL BELONGINGS. CÉSAR NAVARRO Discharge instructions and discharge home medications reviewed with Patient and a copy given. All questions have been answered and understanding verbalized.
== END 2021-06-12 13:00 | disposition home or self-care (01) ==
LOC: ER 11:39 → ED HOLD 16:32 → 2 NORTH 19:38
PROVIDERS: ADMIT Internal Medicine; ATTEND Internal Medicine
DX: K29.70 Gastritis, unspecified, without bleeding (principal); Z20.822 Contact with and (suspected) exposure to COVID-19; D72.829 Elevated white blood cell count, unspecified; N28.9 Disorder of kidney and ureter, unspecified; D64.9 Anemia, unspecified; J45.909 Unspecified asthma, uncomplicated; K21.00 Gastro-esophageal reflux disease with esophagitis, without bleeding; K29.00 Acute gastritis without bleeding; K58.9 Irritable bowel syndrome, unspecified; K64.9 Unspecified hemorrhoids; F12.90 Cannabis use, unspecified, uncomplicated; Z87.11 Personal history of peptic ulcer disease; Z79.899 Other long term (current) drug therapy; Z98.890 Other specified postprocedural states
CPT/HCPCS: 36415; 74177; 80048; 80053; 80307; 81001; 83690; 83735; 84484; 85007; 85025; 87428; 93005; 96361; 96365; 96366; 96367; 96375; 96376; 99285; C9113; G0378; J0780; J1956; J2405; J3010; J3480; J3490; J7030; J7042; Q9967; G0379

== ENCOUNTER 2021-06-19 10:50 | Emergency (ER) | payer SELFPAY ==
[~2021-06-19] VITALS: Ht 177.8 cm; Wt 97.7 kg
[2021-06-19] MEDS ORDERED: PANTOPRAZOLE IV PUSH 40 MG VIAL. IVP ONE (11:30)
[2021-06-19 11:40] LABS: BASO # 0.1 x10^3/uL (0.0-0.2); BASO % 0 % (0-3); EOS # 0.1 x10^3/uL (0.0-0.7); EOS % 0 % (0-3); HEMATOCRIT 42.9 % (39.0-53.0); HEMOGLOBIN 14.5 g/dL (13.0-17.5); LYMPH # 2.1 x10^3/uL (1.0-4.8); LYMPH % 12 % (24-48); MEAN CORPUSCULAR HEMOGLOBIN 33 pg (25-35); MEAN CORPUSCULAR HGB CONC 34 g/dL (31-37); MEAN CORPUSCULAR VOLUME 97 fL (79-100); MONO # 1.4 x10^3/uL (0.0-1.1); MONO % 8 % (0-9); NEUT # 13.4 x10^3/uL (1.8-7.7); NEUT % 79 % (31-73); PLATELET COUNT 457 x10^3/uL (140-400); RED BLOOD COUNT 4.42 x10^6/uL (4.30-5.70); RED CELL DISTRIBUTION WIDTH 13.2 % (11.5-14.5)
[2021-06-19 11:49] LABS: CREATININE 1.4 mg/dL (0.7-1.3); GFR 69.8; POTASSIUM 3.1 mmol/L (3.5-5.1)
[2021-06-19 11:55] LABS: ALBUMIN 4.5 g/dL (3.4-5.0); ALBUMIN/GLOBULIN RATIO 1.1 (1.0-1.7); MAGNESIUM 2.3 mg/dL (1.8-2.4); TOTAL BILIRUBIN 0.8 mg/dL (0.2-1.0); TOTAL PROTEIN 8.7 g/dL (6.4-8.2)
--- NOTE | 2021-06-19 11:57 | RAD ---
Acute Abdominal Series: 06/19/2021 11:29 AM Reason for study: Nausea and vomiting. Comparison studies: None. Technique: Frontal view of the chest was obtained along with supine and upright views of the abdomen. Findings: Nonobstructive bowel gas pattern. No air fluid levels or free air. The lungs are clear without acute consolidative opacity. No pleural effusion or pneumothorax. The car diac and mediastinal contours are normal. Visualized osseous structures are intact. IMPRESSION: 1. Nonobstructed bowel gas pattern. 2. No acute cardiopulmonary findings. Electronically signed by: Kiana Castro MD (06/19/2021 11:55 AM) KATHY
--- NOTE | 2021-06-19 13:36 | RAD ---
Abdominal and Pelvis CT, Without Contrast: History: Reason: abdominal pain, vomiting blood / Spl. Instructions: / History: Comparison: June 10, 2021. Procedure: Axial images are obtained of the abdomen and pelvis, without IV or oral contrast. Oral Contrast: No Findings: The gallbladder is normal. The appendix is normal. Evaluation of solid organs is limited without contrast. Liver: Normal. Spleen: Normal. Pancreas: Normal. Adrenal Glands: Normal. Kidneys: Normal. There is no free air or free fluid. There is no lymphadenopathy. The urinary bladder appears normal. There is no pericolonic inflammation identified. Impression: No acute findings. End impression PQRS Compliance Statement: One or more of the following individualized dose reduction techniques were utilized for this examinat ion: 1. Automated exposure control 2. Adjustment of the mA and/or kV according to patient size 3. Use of iterative reconstruction technique Electronically signed by: Jacques Puentes III, MD (06/19/2021 1:34 PM) [facility]
[2021-06-19] MEDS ORDERED: OMEP20TA63 PO (14:05)
[2021-06-19] MEDS ORDERED: SUCR1TAB35 PO (14:05)
--- NOTE | 2021-06-19 14:05 | PHYS DOC ---
Past Medical History Past Medical History: Asthma, GERD, IBS, Other Additional Past Medical Histor: STOMACH ULCERS, GERD Past Surgical History: Other Additional Past Surgical Histo: RT HAND SURGERY Smoking Status: Current Every Day Smoker Additional Information: marijuana use, no tobacco Alcohol Use: Rarely Drug Use: Marijuana Social History Narrative: daily use General Adult EDM: Chief Complaint: HEMATEMESIS/VOMITING BLOOD HPI: HPI: Patient is a 35 year old male who present to ER for evaluation of vomiting blood that started yesterday. Patient has a history of stomach ulcers in the past, patient had scope done in the past by Dr. Dasilva in 2019. Patient was supposed to be on antiacid medication. Patient said he had been evaluated at [facility] and [facility] for the same problem in the past. Patient was seen here on June 10, 2021 for same problem, patient was admitted to the hospital due to gastritis. Patient was evaluated by GI doctor Dr. Sivan Syed who recommended patient to be discharged home, taking PPI and follow-up with Dr. Dasilva for outpatient EGD. Patient was discharged home on June 12, 2021. Patient said he finally got a hold of the radiology report that the radiologist recommended patient to have an EGD done so he came here to have it done. Patient said he has an episode of vomiting blood again last night. Patient said he had not eaten anything today so he did not have any vomiting episode yet. Patient denies any abdominal pain, no weakness or numbness, no dizziness. Review of Systems: Review of Systems: Constitutional: Denies fever or chills. [] Eyes: Denies change in visual acuity. [] HENT: Denies nasal congestion or sore throat. [] Respiratory: Denies cough or shortness of breath. [] Cardiovascular: Denies chest pain or edema. [] GI: Denies abdominal pain, positive for nausea vomiting, vomiting trace of blood. : Denies dysuria. [] Musculoskeletal: Denies back pain or joint pain. [] Integument: Denies rash. [] Neurologic: Denies headache, focal weakness or sensory changes. [] Endocrine: Denies polyuria or polydipsia. [] Lymphatic: Denies swollen glands. [] Psychiatric: Denies depression or anxiety. [] Heart Score: C/O Chest Pain: N/A Risk Factors: Risk Factors: DM, Current or recent (<one month) smoker, HTN, HLP, family history of CAD, obesity. Risk Scores: Score 0 - 3: 2.5% MACE over next 6 weeks - Discharge Home Score 4 - 6: 20.3% MACE over next 6 weeks - Admit for Clinical Observation Score 7 - 10: 72.7% MACE over next 6 weeks - Early Invasive Strategies Current Medications: Current Medications Medications (Trade) Dose Ordered Sig/Keerthi Start Time Stop Time Status Last Admin Dose Admin Pantoprazole Sodium (PROTONIX VIAL for IV PUSH) 40 mg 1X ONCE 06/19/21 11:30 06/19/21 11:49 DC 06/19/21 12:18 40 MG Allergies: Allergies: Allergies Coded Allergies Type Severity Reaction Last Updated Verified naproxen Allergy Intermediate 06/10/21 Yes aspirin Adverse Reaction Severe Nausea and Vomiting 06/10/21 Yes Physical Exam: PE: Constitutional: Well developed, well nourished, no acute distress, non-toxic appearance. [] HENT: Normocephalic, atraumatic, bilateral external ears normal, oropharynx moist, no oral exudates, nose normal. [] Eyes: PERRLA, EOMI, conjunctiva normal, no discharge. [] Neck: Normal range of motion, no tenderness, supple, no stridor. [] Cardiovascular:Heart rate regular rhythm, no murmur [] Lungs & Thorax: Bilateral breath sounds clear to auscultation [] Abdomen: Bowel sounds normal, soft, no tenderness, no masses, no pulsatile masses. [] Skin: Warm, dry, no erythema, no rash. [] Back: No tenderness, no CVA tenderness. [] Extremities: No tenderness, no cyanosis, no clubbing, ROM intact, no edema. [] Neurologic: Alert and oriented X 3, normal motor function, normal sensory function, no focal deficits noted. [] Psychologic: Affect normal, judgement normal, mood normal. [] Current Patient Data: Labs: Laboratory Tests Test 06/19/21 11:25 White Blood Count 17.0 x10^3/uL (4.0-11.0) H Red Blood Count 4.42 x10^6/uL (4.30-5.70) Hemoglobin 14.5 g/dL (13.0-17.5) Hematocrit 42.9 % (39.0-53.0) Mean Corpuscular Volume 97 fL (79-100) Mean Corpuscular Hemoglobin 33 pg (25-35) Mean Corpuscular Hemoglobin Concent 34 g/dL (31-37) Red Cell Distribution Width 13.2 % (11.5-14.5) Platelet Count 457 x10^3/uL (140-400) H Neutrophils (%) (Auto) 79 % (31-73) H Lymphocytes (%) (Auto) 12 % (24-48) L Monocytes (%) (Auto) 8 % (0-9) Eosinophils (%) (Auto) 0 % (0-3) Basophils (%) (Auto) 0 % (0-3) Neutrophils # (Auto) 13.4 x10^3/uL (1.8-7.7) H Lymphocytes # (Auto) 2.1 x10^3/uL (1.0-4.8) Monocytes # (Auto) 1.4 x10^3/uL (0.0-1.1) H Eosinophils # (Auto) 0.1 x10^3/uL (0.0-0.7) Basophils # (Auto) 0.1 x10^3/uL (0.0-0.2) Sodium Level 142 mmol/L (136-145) Potassium Level 3.1 mmol/L (3.5-5.1) L Chloride Level 106 mmol/L (98-107) Carbon Dioxide Level 24 mmol/L (21-32) Anion Gap 12 (6-14) Blood Urea Nitrogen 24 mg/dL (8-26) Creatinine 1.4 mg/dL (0.7-1.3) H Estimated GFR (Cockcroft-Gault) 69.8 BUN/Creatinine Ratio 17 (6-20) Glucose Level 126 mg/dL (70-99) H Calcium Level 10.0 mg/dL (8.5-10.1) Magnesium Level 2.3 mg/dL (1.8-2.4) Total Bilirubin 0.8 mg/dL (0.2-1.0) Aspartate Amino Transferase (AST) 48 U/L (15-37) H Alanine Aminotransferase (ALT) 38 U/L (16-63) Alkaline Phosphatase 66 U/L (46-116) Total Protein 8.7 g/dL (6.4-8.2) H Albumin 4.5 g/dL (3.4-5.0) Albumin/Globulin Ratio 1.1 (1.0-1.7) Lipase 164 U/L (73-393) Laboratory Tests 06/19/21 11:25 Laboratory Tests 06/19/21 11:25 Vital Signs: Vital Signs Date Time Temp Pulse Resp B/P (MAP) Pulse Ox O2 Delivery O2 Flow Rate FiO2 06/19/21 12:22 83 16 128/77 (94) Room Air 06/19/21 10:57 98.5 100 98.5 EKG: EKG: [] Radiology/Procedures: Radiology/Procedures: [address] [address] IMAGING REPORT Signed PATIENT: CÉSAR NAVARROCOUNT: [id number] : 1985 LOCATION: ER AGE: 35 SEX: M EXAM STATUS: PRE ER ORD. PHYSICIAN: SHIRLEY JOEL DO REASON: nausea, vomiting PROCEDURE: ACUTE ABDOMEN SERIES Acute Abdominal Series: 06/19/2021 11:29 AM Reason for study: Nausea and vomiting. Comparison studies: None. Technique: Frontal view of the chest was obtained along with supine and upright views of the abdomen. Findings: Nonobstructive bowel gas pattern. No air fluid levels or free air. The lungs are clear without acute consolidative opacity. No pleural effusion or pneumothorax. The cardiac and mediastinal contours are normal. Visualized osseous structures are intact. IMPRESSION: 1. Nonobstructed bowel gas pattern. 2. No acute cardiopulmonary findings. Electronically signed by: Priti Gama MD (06/19/2021 11:55 AM) [facility] DICTATED and SIGNED BY: PRITI GAMA MD DATE: 06/19/21 1154 [][address] [id number] IMAGING REPORT Signed PATIENT: CÉSAR NAVARROCOUNT: [id number] : 1985 LOCATION: ER AGE: 35 SEX: M EXAM STATUS: REG ER ORD. PHYSICIAN: SHIRLEY JOEL DO REASON: abdominal pain, vomiting blood PROCEDURE: CT ABDOMEN PELVIS WO CONTRAST Abdominal and Pelvis CT, Without Contrast: History: Reason: abdominal pain, vomiting blood / Spl. Instructions: / History: Comparison: June 10, 2021. Procedure: Axial images are obtained of the abdomen and pelvis, without IV or oral contrast. Oral Contrast: No Findings: The gallbladder is normal. The appendix is normal. Evaluation of solid organs is limited without contrast. Liver: Normal. Spleen: Normal. Pancreas: Normal. Adrenal Glands: Normal. Kidneys: Normal. There is no free air or free fluid. There is no lymphadenopathy. The urinary bladder appears normal. There is no pericolonic inflammation identified. Impression: No acute findings. End impression PQRS Compliance Statement: One or more of the following individualized dose reduction techniques were utilized for this examination: 1. Automated exposure control 2. Adjustment of the mA and/or kV according to patient size 3. Use of iterative reconstruction technique Electronically signed by: Ariel Murphy III, MD (06/19/2021 1:34 PM) [facility] DICTATED and SIGNED BY: ARIEL MURPHY III, MD DATE: 06/19/215 Course & Med Decision Making: Course & Med Decision Making Pertinent Labs and Imaging studies reviewed. (See chart for details) Patient is a 35-year-old male who present to ER due to nausea vomiting, vomiting some trace of blood with some abdominal discomfort. Patient vital signs were stable, his hemoglobin level was normal. His white blood cell count was slightly elevated. CT scan her abdomen pelvis did not show any acute problem. His white blood cell evaluation is most likely due to stress. Patient was not observed to vomiting anything in the ER. I discussed the case with his family physician Dr. Gauthier at 2 pm today. His doctors stated that patient does not need to be admitted to hospital, patient can be discharged home, Dr. Gauthier said he will contact the GI nurse practitioner tomorrow, and she will call PATIENT to arrange for outpatient EGD study. I discussed with the patient about the plan of care, patient became obsessed, he started cursing at this physician, patient stated that he would not leave here without having EGD done. Informed patient that his vital signs are stable, he is not anemic, he does not need to have an emergent EGD done in the ER. Inform patient that his family physician has been contacted, the GI clinic will call him tomorrow to set up outpatient EGD study. Patient continued to verbally abusive to this physician, he said his is a nurse, he has family member who are doctor and dry cleaning counter clerk. He will christianne this physician and this hospital. Patient was discharged home with prescription for Carafate and Prilosec. Dragon Disclaimer: Dragon Disclaimer: This electronic medical record was generated, in whole or in part, using a voice recognition dictation system. Departure Departure Impression: Primary Impression: Gastritis Disposition: HOME / SELF CARE / HOMELESS Condition: STABLE Referrals: JAVIER GAUTHIER MD (PCP) Please follow up with your family doctor ON SUNDAY for a referral to GI specialist for outpatient evaluation with EGD HÉCTOR DASILVA MD PLEASE FOLLOW UP WITH THIS GI DOCTOR FOR OUTPATIENT EVALUATION WITH EGD JANINA Mckeon Patient Instructions: Gastritis, Adult Additional Instructions: Thank you for visiting our Emergency Department. We appreciate you trusting us with your care. If any additional problems come up don't hesitate to return to visit us. Please follow up with your primary care provider so they can plan additional care if needed and know about the problem that you had. If symptoms worsen come back to the Emergency Department. Any concerning symptoms that start such as chest pain, shortness of air, weakness or numbness on one side of the body, running high fevers or any other concerning symptoms return to the ER. Scripts Omeprazole Magnesium (PRILOSEC OTC) 20 Mg Tablet. 2 TAB PO DAILY for 30 Days, #60 TAB 0 Refills Prov: SHIRLEY JOEL DO 06/19/21 Sucralfate (CARAFATE) 1 Gm Tablet 1 TAB PO QID for 14 Days, #56 TAB 0 Refills Prov: SHIRLEY JOEL DO 06/19/21 SHIRLEY JOEL DO Jun 19, 2021 14:05
[2021-06-19 14:07] VITALS: BP 122/77
[2021-06-19] MEDS ORDERED: IV NORMAL SALINE 500ML BAG 500 ML IV ONE (14:15)
[2021-06-19] MEDS ORDERED: POTASSIUM CHLORIDE 20 MEQ TABLET.ER. PO ONE (14:30)
== END 2021-06-19 15:28 | disposition home or self-care (01) ==
LOC: ER 10:50
DX: K29.70 Gastritis, unspecified, without bleeding (principal); J45.909 Unspecified asthma, uncomplicated; K21.9 Gastro-esophageal reflux disease without esophagitis; F17.200 Nicotine dependence, unspecified, uncomplicated; Z87.11 Personal history of peptic ulcer disease; Z88.8 Allergy status to other drugs, medicaments and biological substances; Z88.6 Allergy status to analgesic agent
CPT/HCPCS: 36415; 74022; 74176; 80053; 83690; 83735; 85025; 96361; 96374; 99285; C9113; J7040